=== PATIENT | female | born 1965 | race Caucasian/White ===

== ENCOUNTER 2022-06-12 19:08 | Emergency (ER) | payer BC, SELFPAY ==
--- NOTE | ~2022-06-12 | CT_ITS ---
EXAMINATION: CT ABDOMEN AND PELVIS WITH CONTRAST CLINICAL INFORMATION: Abdominal pain, nausea, vomiting and diarrhea. History of ulcerative colitis. COMPARISON: None TECHNIQUE: Multidetector volumetric images were obtained from the superior aspect of the liver through the pubic symphysis following administration 85 mL of Omnipaque 350 intravenous contrast. Sagittal and coronal reformatted images were obtained on the technologist's workstation. Oral contrast: No This CT examination was performed using dose optimization techniques as appropriate, variously including the following: *Automated exposure control *Adjustment of mA and/or kV according to patient size (this includes techniques or standardized protocols for targeted exams where dose is matched to indication/reason for exam; i.e. extremities or head) *Use of iterative reconstruction technique DLP: 590 mGy-cm FINDINGS: LUNG BASES: The visualized lung bases are unremarkable. LIVER, GALLBLADDER, AND BILIARY TREE: The liver is normal in size, shape, and attenuation. No focal hepatic lesion or biliary ductal dilatation is present. The gallbladder is unremarkable with no evidence of radiopaque gallstones, gallbladder wall thickening, or obvious pericholecystic inflammatory changes. Trace perihepatic ascites. PANCREAS: Unremarkable. SPLEEN: Unremarkable. ADRENAL GLANDS: Unremarkable. KIDNEYS AND URETERS: The kidneys are normal in size, shape, and attenuation. There is scarring in the lower pole left kidney. An associated dystrophic parenchymal calcification present in the lower pole of left kidney. No hydronephrosis, hydroureter, or calculi seen. No perinephric stranding. BLADDER: Unremarkable. GASTROINTESTINAL TRACT: Total colectomy with ileoanal anastomosis with J-pouch. There is mild edematous wall thickening of the J-pouch and distal ileum leading up to 8 suggestive of esophagitis and possibly enteritis. In addition, there is mesenteric fat stranding and edema in the right upper quadrant and central abdomen. There is no discrete point of transition to suggest obstruction. ABDOMINAL WALL: No significant hernia is appreciated. LYMPH NODES: Normal. VASCULAR: Unremarkable. PELVIC VISCERA: Unremarkable. OSSEOUS STRUCTURES: Unremarkable. CT/CT abdomen pelvis w IV con IMPRESSION: * Status post total colectomy with J-pouch formation. There is mild edematous wall thickening of the J-pouch and distal ileum leading up to the J-pouch suggestive of enteritis. * There is mesenteric edema and fat stranding in the right upper quadrant and central abdomen associated with more proximal loops of small bowel,
--- NOTE | ~2022-06-12 | US_ITS ---
EXAMINATION: US ABDOMEN LIMITED CLINICAL INFORMATION: Nausea and epigastric pain. COMPARISON: None TECHNIQUE: Real-time imaging of the right upper quadrant abdominal viscera. FINDINGS: PANCREAS: The head and the body the pancreas is homogeneous in echotexture. The tail is obscured by overlying gas. LIVER: Normal. The liver is normal in size. The liver contour is normal. Parenchymal echogenicity is normal. No focal hepatic lesion. There is no intrahepatic biliary duct dilatation seen. GALLBLADDER: Normal. The gallbladder is physiologically distended without evidence of stones, sludge, polyps, wall thickening or pericholecystic fluid. COMMON BILE DUCT: Normal in caliber measuring 0.3 cm in diameter. RIGHT KIDNEY: Normal. No hydronephrosis. No renal calculi or focal parenchymal lesions. The kidney measures 9.3 cm in maximum dimension. FREE FLUID: None. US/US abdomen limited IMPRESSION: Limited abdominal ultrasound appears unremarkable.
[2022-06-12 19:48] VITALS: BP 165/75; PULSE 92; RESP 16; TEMP 36.7; O2SAT 99; BMI 26.6
--- NOTE | 2022-06-12 19:50 | ED.ABDPAIN ---
HPI - Abdominal Pain General Chief Complaint: Abdominal Pain Stated Complaint: right sided abd pain,nausea Time Seen by Provider: 06/12/22 23:23 Related Data Previous Rx's Medication Instructions Recorded ondansetron 4 mg disintegrating 4 mg PO TID PRN nausea and 06/13/22 tablet vomiting 5 days #10 tabs Allergies Allergy/AdvReac Type Severity Reaction Status Date / Time acetaminophen [From VICODIN] Allergy Unknown STOMACH Unverified 12/18/19 15:37 UPSET hydrocodone [From VICODIN] Allergy Unknown STOMACH Unverified 12/18/19 15:37 UPSET vicodin Allergy Unknown vomited in Uncoded 10/16/17 00:00 the ER years ago [facility] Social History Social History Alcohol intake: never Smoked in Last 30 Days: No Use of substances other than those prescribed or required for medical reasons: No Advance Directives: No Patient : No Physical Exam ED Vital Signs: BMI result Body Mass Index 26.6 Course Course Course Narrative: RME-19:50PM - 57yo presenting to the ER with complaints of right-sided/epigastric abdominal pain for the past 2 weeks worse today with associated nausea. Reports increased anxiety/depression. Vague about SI/HI. Denies any fevers or vomiting or diarrhea, recent travel or sick contacts or any other symptoms complaints or concerns at this time. Plan: Labs, UA, COVID swab, abdominal ultrasound. Patient will be sent back to the waiting room to be evaluated the ED. Medical Decision Making Lab Data 06/12/22 22:30 06/12/22 22:30 Labs: Lab Results 06/12/22 06/12/22 06/12/22 Range/Units 22:30 22:30 22:30 WBC 12.6 H (4.8-10.8) X10*3/uL RBC 4.36 (4.20-5.50) X10*6/uL Hgb 8.8 L (12.0-16.0) g/dl Hct 29.0 L (37.0-47.0) % MCV 66.5 L (80.0-98.0) fL MCH 20.2 L (27.0-33.0) pg MCHC 30.3 L (31.0-35.0) g/dl RDW 18.7 H (11.0-16.0) % Plt Count 426 H (160-400) X10*3/uL MPV 9.9 (9.4-12.3) fL Immature Gran % (Auto) 0.5 H (0.0-0.4) % Neut % (Auto) 81.7 H (45-73) % Lymph % (Auto) 12.1 L (20-40) % [place] % (Auto) 3.9 (2-11) % Eos % (Auto) 1.0 (0-4) % Baso % (Auto) 0.8 (0-2) % Lymph # (Auto) 1.5 (1.2-4.9) X10*3/uL [place] # (Auto) 0.5 (0.1-1.2) X10*3/uL Eos # (Auto) 0.1 (0.0-0.4) X10*3/uL Baso # (Auto) 0.1 (0.0-0.2) X10*3/uL Abs Immat Gran (auto) 0.06 H (0.00-0.03) X10*3/uL Absolute Neuts (auto) 10.3 H (2.0-8.3) x10*3/uL Absolute Nucleated RBC 0.000 (0.0-0.012) X10*3/uL Nucleated RBC % (auto) 0.0 (0.0-0.2) /100WBC PT 11.2 (10.0-13.1) SEC INR 1.0 (0.9-1.1) Sodium 139 (135-145) mmol/L Potassium 3.7 (3.3-5.1) mmol/L Chloride 100 (96-108) mmol/L Carbon Dioxide 30 H (22-29) mmol/L Anion Gap 13 (12-20) BUN 13 (9-16) mg/dL Creatinine 0.89 (0.5-1.4) mg/dL Estim Creat Clear Calc 69.5 Estimated GFR > 60 Random Glucose 146 H (60-115) mg/dL Calcium 9.2 (8.4-10.2) mg/dL Magnesium 1.9 (1.6-2.6) mg/dL Total Bilirubin 0.5 (0.0-1.0) mg/dL AST 60 H (5-31) U/L ALT 73 H (0-31) U/L Alkaline Phosphatase 100 (39-117) U/L Total Protein 7.5 (6.5-8.0) g/dL Albumin 3.9 (3.5-5.0) g/dL Lipase 15 (8-78) U/L Urine Color Urine Appearance Urine pH Ur Specific [place] Urine Protein Urine Glucose (UA) Urine Ketones Urine Blood Urine Nitrite Ur Leukocyte Esterase Urine Opiates Screen (Not Detect) Urine Fentanyl Screen (Not Detect) Ur Barbiturates Screen (Not Detect) Ur Phencyclidine Scrn (Not Detect) Ur Amphetamines Screen (Not Detect) U Benzodiazepines Scrn (Not Detect) Urine Cocaine Screen (Not Detect) U Marijuana (THC) Screen (Not Detect) Ethyl Alcohol mg/dL Influenza Type A (PCR) (Negative) Influenza Type B (PCR) (Negative) RSV RNA Qual (PCR) (Negative) SARS-CoV-2 RNA (RT-PCR) (Negative) 06/12/22 06/12/22 06/13/22 Range/Units 22:30 22:30 00:27 WBC (4.8-10.8) X10*3/uL RBC (4.20-5.50) X10*6/uL Hgb (12.0-16.0) g/dl Hct (37.0-47.0) % MCV (80.0-98.0) fL MCH (27.0-33.0) pg MCHC (31.0-35.0) g/dl RDW (11.0-16.0) % Plt Count (160-400) X10*3/uL MPV (9.4-12.3) fL Immature Gran % (Auto) (0.0-0.4) % Neut % (Auto) (45-73) % Lymph % (Auto) (20-40) % [place] % (Auto) (2-11) % Eos % (Auto) (0-4) % Baso % (Auto) (0-2) % Lymph # (Auto) (1.2-4.9) X10*3/uL [place] # (Auto) (0.1-1.2) X10*3/uL Eos # (Auto) (0.0-0.4) X10*3/uL Baso # (Auto) (0.0-0.2) X10*3/uL Abs Immat Gran (auto) (0.00-0.03) X10*3/uL Absolute Neuts (auto) (2.0-8.3) x10*3/uL Absolute Nucleated RBC (0.0-0.012) X10*3/uL Nucleated RBC % (auto) (0.0-0.2) /100WBC PT (10.0-13.1) SEC INR (0.9-1.1) Sodium (135-145) mmol/L Potassium (3.3-5.1) mmol/L Chloride (96-108) mmol/L Carbon Dioxide (22-29) mmol/L Anion Gap (12-20) BUN (9-16) mg/dL Creatinine (0.5-1.4) mg/dL Estim Creat Clear Calc Estimated GFR Random Glucose (60-115) mg/dL Calcium (8.4-10.2) mg/dL Magnesium (1.6-2.6) mg/dL Total Bilirubin (0.0-1.0) mg/dL AST (5-31) U/L ALT (0-31) U/L Alkaline Phosphatase (39-117) U/L Total Protein (6.5-8.0) g/dL Albumin (3.5-5.0) g/dL Lipase (8-78) U/L Urine Color Cancelled Urine Appearance Cancelled Urine pH Cancelled Ur Specific [place] Cancelled Urine Protein Cancelled Urine Glucose (UA) Cancelled Urine Ketones Cancelled Urine Blood Cancelled Urine Nitrite Cancelled Ur Leukocyte Esterase Cancelled Urine Opiates Screen (Not Detect) Urine Fentanyl Screen (Not Detect) Ur Barbiturates Screen (Not Detect) Ur Phencyclidine Scrn (Not Detect) Ur Amphetamines Screen (Not Detect) U Benzodiazepines Scrn (Not Detect) Urine Cocaine Screen (Not Detect) U Marijuana (THC) Screen (Not Detect) Ethyl Alcohol < 10 mg/dL Influenza Type A (PCR) NEGATIVE (Negative) Influenza Type B (PCR) NEGATIVE (Negative) RSV RNA Qual (PCR) NEGATIVE (Negative) SARS-CoV-2 RNA (RT-PCR) POSITIVE A (Negative) 03/14/23 Range/Units 00:27 WBC (4.8-10.8) X10*3/uL RBC (4.20-5.50) X10*6/uL Hgb (12.0-16.0) g/dl Hct (37.0-47.0) % MCV (80.0-98.0) fL MCH (27.0-33.0) pg MCHC (31.0-35.0) g/dl RDW (11.0-16.0) % Plt Count (160-400) X10*3/uL MPV (9.4-12.3) fL Immature Gran % (Auto) (0.0-0.4) % Neut % (Auto) (45-73) % Lymph % (Auto) (20-40) % [place] % (Auto) (2-11) % Eos % (Auto) (0-4) % Baso % (Auto) (0-2) % Lymph # (Auto) (1.2-4.9) X10*3/uL [place] # (Auto) (0.1-1.2) X10*3/uL Eos # (Auto) (0.0-0.4) X10*3/uL Baso # (Auto) (0.0-0.2) X10*3/uL Abs Immat Gran (auto) (0.00-0.03) X10*3/uL Absolute Neuts (auto) (2.0-8.3) x10*3/uL Absolute Nucleated RBC (0.0-0.012) X10*3/uL Nucleated RBC % (auto) (0.0-0.2) /100WBC PT (10.0-13.1) SEC INR (0.9-1.1) Sodium (135-145) mmol/L Potassium (3.3-5.1) mmol/L Chloride (96-108) mmol/L Carbon Dioxide (22-29) mmol/L Anion Gap (12-20) BUN (9-16) mg/dL Creatinine (0.5-1.4) mg/dL Estim Creat Clear Calc Estimated GFR Random Glucose (60-115) mg/dL Calcium (8.4-10.2) mg/dL Magnesium (1.6-2.6) mg/dL Total Bilirubin (0.0-1.0) mg/dL AST (5-31) U/L ALT (0-31) U/L Alkaline Phosphatase (39-117) U/L Total Protein (6.5-8.0) g/dL Albumin (3.5-5.0) g/dL Lipase (8-78) U/L Urine Color Urine Appearance Urine pH Ur Specific [place] Urine Protein Urine Glucose (UA) Urine Ketones Urine Blood Urine Nitrite Ur Leukocyte Esterase Urine Opiates Screen Not Detected (Not Detect) Urine Fentanyl Screen Not Detected (Not Detect) Ur Barbiturates Screen Not Detected (Not Detect) Ur Phencyclidine Scrn Not Detected (Not Detect) Ur Amphetamines Screen Not Detected (Not Detect) U Benzodiazepines Scrn Not Detected (Not Detect) Urine Cocaine Screen Not Detected (Not Detect) U Marijuana (THC) Screen Not Detected (Not Detect) Ethyl Alcohol mg/dL Influenza Type A (PCR) (Negative) Influenza Type B (PCR) (Negative) RSV RNA Qual (PCR) (Negative) SARS-CoV-2 RNA (RT-PCR) (Negative) Medications Administered Discontinued Medications Generic Name Dose Route Start Last Admin Trade Name Freq PRN Reason Stop Dose Admin Sodium Chloride 1,000 mls @ 999 mls/hr 06/13/22 00:30 06/13/22 01:51 Ns IV 06/13/22 01:30 Infused .Q1H1M JUDY Infusion Iohexol 85 ml 06/13/22 01:19 06/13/22 01:20 Iohexol 350 Mg/Ml 100 Ml Infus..Btl IV 06/13/22 01:20 85 ml ONCE ONE Administration Ondansetron HCl 4 mg 06/13/22 00:16 06/13/22 00:30 Ondansetron Hcl 4 Mg/2 Ml Vial IVPUSH 06/13/22 00:17 4 mg ONCE ONE Administration Discharge Plan Discharge Clinical Impression: Colitis Patient Disposition: Home, Self-Care Instructions: Colitis (ED) Prescriptions: New ondansetron 4 mg tablet,disintegrating 4 mg PO TID PRN (Reason: nausea and vomiting) 5 Days Qty: 10 0RF Referrals: Sara Conroy MD [Primary Care Provider] - Gumaro Kruse [Physician] - Interventions: ED Discharge Assessment Last Done: 06/13/22 02:45 Discharge Date/Time: 06/13/22 03:01
[2022-06-12 22:38] LABS: MANUAL DIFF FLAG NO
[2022-06-12 22:39] LABS: Basophils Absolute Auto 0.1 X10*3/uL (0.0-0.2); Basophils Percent Auto 0.8 % (0-2); Eosinophils Absolute Auto 0.1 X10*3/uL (0.0-0.4); Hemoglobin 8.8 g/dl (12.0-16.0); Imm Gran Abs Auto 0.06 X10*3/uL (0.00-0.03); Imm Gran Pct Auto 0.5 % (0.0-0.4); Lymphocytes Absolute Auto 1.5 X10*3/uL (1.2-4.9); Lymphocytes Percent Auto 12.1 % (20-40); Mean Corpuscular HGB Conc 30.3 g/dl (31.0-35.0); Mean Corpuscular Hemoglobin 20.2 pg (27.0-33.0); Mean Corpuscular Volume 66.5 fL (80.0-98.0); Mean Platelet Volume 9.9 fL (9.4-12.3); Monocytes Absolute Auto 0.5 X10*3/uL (0.1-1.2); Monocytes Percent Auto 3.9 % (2-11); Neutrophils Absolute Auto 10.3 x10*3/uL (2.0-8.3); Neutrophils Percent Auto 81.7 % (45-73); Platelet Count 426 X10*3/uL (160-400); Red Blood Count 4.36 X10*6/uL (4.20-5.50); Red Cell Distribution Width 18.7 % (11.0-16.0); White Blood Count 12.6 X10*3/uL (4.8-10.8)
[2022-06-12 22:44] LABS: Prothrombin Time 11.2 SEC (10.0-13.1)
[2022-06-12 22:55] LABS: Ethanol < 10 mg/dL
[2022-06-12 22:57] LABS: Alanine Aminotransferase 73 U/L (0-31); Albumin Level 3.9 g/dL (3.5-5.0); Alkaline Phosphatase 100 U/L (39-117); Anion Gap 13 (12-20); Aspartate Amino Transferase 60 U/L (5-31); Bilirubin Total 0.5 mg/dL (0.0-1.0); Blood Urea Nitrogen 13 mg/dL (9-16); Calcium 9.2 mg/dL (8.4-10.2); Carbon Dioxide 30 mmol/L (22-29); Chloride 100 mmol/L (96-108); Creatinine Clr Calc Pharmacy 69.5; Estimated Glomerular Filt Rate > 60; Glucose Random 146 mg/dL (60-115); Lipase 15 U/L (8-78); Magnesium 1.9 mg/dL (1.6-2.6); Potassium 3.7 mmol/L (3.3-5.1); Sodium 139 mmol/L (135-145); Total Protein 7.5 g/dL (6.5-8.0)
[2022-06-12 23:19] LABS: Influenza A PCR NEGATIVE (Negative); Influenza B PCR NEGATIVE (Negative); Resp Syncy Virus RNA Qual PCR NEGATIVE (Negative); SARS COV2 PCR INHOUSE POSITIVE (Negative)
--- NOTE | 2022-06-13 00:17 | ED_ITS ---
HPI - Abdominal Pain General Chief Complaint: Abdominal Pain Stated Complaint: right sided abd pain,nausea Time Seen by Provider: 06/12/22 23:23 History of Present Illness HPI narrative: Patient is a 57-year-old female with a history of ulcerative colitis history of having colectomy history of having a J-pouch and subsequently had reattached history of abscesses and seizures in the past. Presents today with having abdominal pain nausea vomiting patient always has diarrhea that is not seen. Vomiting is new. It is associated with pain in the right lower quadrant. She is status post appendectomy. Patient had COVID approximately 1 month ago. He is vaccinated Related Data Previous Rx's Medication Instructions Recorded ondansetron 4 mg disintegrating 4 mg PO TID PRN nausea and 06/13/22 tablet vomiting 5 days #10 tabs Allergies Allergy/AdvReac Type Severity Reaction Status Date / Time acetaminophen [From VICODIN] Allergy Unknown STOMACH Unverified 12/18/19 15:37 UPSET hydrocodone [From VICODIN] Allergy Unknown STOMACH Unverified 12/18/19 15:37 UPSET vicodin Allergy Unknown vomited in Uncoded 10/16/17 00:00 the ER years ago Review of Systems Review of Systems Positive abdominal pain positive nausea vomiting Yes all other systems are reviewed and are negative PMFSH Social History Social History Alcohol intake: never Smoked in Last 30 Days: No Use of substances other than those prescribed or required for medical reasons: No Advance Directives: No Patient : No Physical Exam ED Vital Signs: Vital Signs - 24 hr 06/12/22 19:48 06/13/22 00:33 06/13/22 02:11 Temperature 98.0 F 98.3 F Pulse Rate 92 75 80 Respiratory Rate 16 16 18 Blood Pressure 165/75 H 136/82 141/82 H Pulse Oximetry 99 96 98 Oxygen Delivery Method Room Air Room Air Room Air BMI result Body Mass Index 26.6 Appearance: Alert. Oriented X3. No acute distress. Eyes: Pupils equal, round and reactive to light. ENT: Pharynx normal. Neck: Normal inspection. Neck supple. No lymph nodes noted. No crepitus CVS: Normal heart rate and rhythm. Pulses normal. Normal S1 and S2 Respiratory: No respiratory distress. Breath sounds normal. No Wheezing. No rales Abdomen: Soft and nontender. No rigidity. No distention. good BS x4 Skin: Skin warm and dry. Normal skin color. Normal skin turgor. Extremities: No lower extremity edema. Neurovascular intact to all extremities. No Lacerations. No Rash Neuro: Oriented X 3. No motor deficit. No sensory deficit. Moving all extermities. No slurred speech Medical Decision Making Medical Decision Making [facility] Narrative: Patient positive abdominal pain cramping with a history of colectomy status post J pouch in the past. CT scan of the abdomen pelvis was done. There is no obstruction noted. No abscess no perforation no diverticulitis. Patient's appendix is removed. Patient CT did show some mild colitis. Her symptom has improved. Repeat abdominal exam is soft nontender. Patient will follow-up on an outpatient basis with her primary GI doctor Dr. Kruse. In stable condition. Differential Diagnosis Colitis, obstruction, abscess, perforation Lab Data [facility] Lab Attestation statement: I reviewed the patient's lab results. 06/12/22 22:30 06/12/22 22:30 Labs: Lab Results 06/12/22 06/12/22 06/12/22 Range/Units 22:30 22:30 22:30 WBC 12.6 H (4.8-10.8) X10*3/uL RBC 4.36 (4.20-5.50) X10*6/uL Hgb 8.8 L (12.0-16.0) g/dl Hct 29.0 L (37.0-47.0) % MCV 66.5 L (80.0-98.0) fL MCH 20.2 L (27.0-33.0) pg MCHC 30.3 L (31.0-35.0) g/dl RDW 18.7 H (11.0-16.0) % Plt Count 426 H (160-400) X10*3/uL MPV 9.9 (9.4-12.3) fL Immature Gran % (Auto) 0.5 H (0.0-0.4) % Neut % (Auto) 81.7 H (45-73) % Lymph % (Auto) 12.1 L (20-40) % [place] % (Auto) 3.9 (2-11) % Eos % (Auto) 1.0 (0-4) % Baso % (Auto) 0.8 (0-2) % Lymph # (Auto) 1.5 (1.2-4.9) X10*3/uL [place] # (Auto) 0.5 (0.1-1.2) X10*3/uL Eos # (Auto) 0.1 (0.0-0.4) X10*3/uL Baso # (Auto) 0.1 (0.0-0.2) X10*3/uL Abs Immat Gran (auto) 0.06 H (0.00-0.03) X10*3/uL Absolute Neuts (auto) 10.3 H (2.0-8.3) x10*3/uL Absolute Nucleated RBC 0.000 (0.0-0.012) X10*3/uL Nucleated RBC % (auto) 0.0 (0.0-0.2) /100WBC PT 11.2 (10.0-13.1) SEC INR 1.0 (0.9-1.1) Sodium 139 (135-145) mmol/L Potassium 3.7 (3.3-5.1) mmol/L Chloride 100 (96-108) mmol/L Carbon Dioxide 30 H (22-29) mmol/L Anion Gap 13 (12-20) BUN 13 (9-16) mg/dL Creatinine 0.89 (0.5-1.4) mg/dL Estim Creat Clear Calc 69.5 Estimated GFR > 60 Random Glucose 146 H (60-115) mg/dL Calcium 9.2 (8.4-10.2) mg/dL Magnesium 1.9 (1.6-2.6) mg/dL Total Bilirubin 0.5 (0.0-1.0) mg/dL AST 60 H (5-31) U/L ALT 73 H (0-31) U/L Alkaline Phosphatase 100 (39-117) U/L Total Protein 7.5 (6.5-8.0) g/dL Albumin 3.9 (3.5-5.0) g/dL Lipase 15 (8-78) U/L Urine Opiates Screen (Not Detect) Urine Fentanyl Screen (Not Detect) Ur Barbiturates Screen (Not Detect) Ur Phencyclidine Scrn (Not Detect) Ur Amphetamines Screen (Not Detect) U Benzodiazepines Scrn (Not Detect) Urine Cocaine Screen (Not Detect) U Marijuana (THC) Screen (Not Detect) Ethyl Alcohol mg/dL Influenza Type A (PCR) (Negative) Influenza Type B (PCR) (Negative) RSV RNA Qual (PCR) (Negative) SARS-CoV-2 RNA (RT-PCR) (Negative) 06/12/22 06/12/22 06/13/22 Range/Units 22:30 22:30 00:27 WBC (4.8-10.8) X10*3/uL RBC (4.20-5.50) X10*6/uL Hgb (12.0-16.0) g/dl Hct (37.0-47.0) % MCV (80.0-98.0) fL MCH (27.0-33.0) pg MCHC (31.0-35.0) g/dl RDW (11.0-16.0) % Plt Count (160-400) X10*3/uL MPV (9.4-12.3) fL Immature Gran % (Auto) (0.0-0.4) % Neut % (Auto) (45-73) % Lymph % (Auto) (20-40) % [place] % (Auto) (2-11) % Eos % (Auto) (0-4) % Baso % (Auto) (0-2) % Lymph # (Auto) (1.2-4.9) X10*3/uL [place] # (Auto) (0.1-1.2) X10*3/uL Eos # (Auto) (0.0-0.4) X10*3/uL Baso # (Auto) (0.0-0.2) X10*3/uL Abs Immat Gran (auto) (0.00-0.03) X10*3/uL Absolute Neuts (auto) (2.0-8.3) x10*3/uL Absolute Nucleated RBC (0.0-0.012) X10*3/uL Nucleated RBC % (auto) (0.0-0.2) /100WBC PT (10.0-13.1) SEC INR (0.9-1.1) Sodium (135-145) mmol/L Potassium (3.3-5.1) mmol/L Chloride (96-108) mmol/L Carbon Dioxide (22-29) mmol/L Anion Gap (12-20) BUN (9-16) mg/dL Creatinine (0.5-1.4) mg/dL Estim Creat Clear Calc Estimated GFR Random Glucose (60-115) mg/dL Calcium (8.4-10.2) mg/dL Magnesium (1.6-2.6) mg/dL Total Bilirubin (0.0-1.0) mg/dL AST (5-31) U/L ALT (0-31) U/L Alkaline Phosphatase (39-117) U/L Total Protein (6.5-8.0) g/dL Albumin (3.5-5.0) g/dL Lipase (8-78) U/L Urine Opiates Screen Not Detected (Not Detect) Urine Fentanyl Screen Not Detected (Not Detect) Ur Barbiturates Screen Not Detected (Not Detect) Ur Phencyclidine Scrn Not Detected (Not Detect) Ur Amphetamines Screen Not Detected (Not Detect) U Benzodiazepines Scrn Not Detected (Not Detect) Urine Cocaine Screen Not Detected (Not Detect) U Marijuana (THC) Screen Not Detected (Not Detect) Ethyl Alcohol < 10 mg/dL Influenza Type A (PCR) NEGATIVE (Negative) Influenza Type B (PCR) NEGATIVE (Negative) RSV RNA Qual (PCR) NEGATIVE (Negative) SARS-CoV-2 RNA (RT-PCR) POSITIVE A (Negative) Independent Interpretation Interpretation: No Radiology Impression Discussion of test interpretation with radiology: I have reviewed the radiologist's reading. External Record Review External record reviewed: Inpatient record Medications Administered Discontinued Medications Generic Name Dose Route Start Last Admin Trade Name Freq PRN Reason Stop Dose Admin Sodium Chloride 1,000 mls @ 999 mls/hr 06/13/22 00:30 06/13/22 01:51 Ns IV 06/13/22 01:30 Infused .Q1H1M JUDY Infusion Iohexol 85 ml 06/13/22 01:19 06/13/22 01:20 Iohexol 350 Mg/Ml 100 Ml Infus..Btl IV 06/13/22 01:20 85 ml ONCE ONE Administration Ondansetron HCl 4 mg 06/13/22 00:16 06/13/22 00:30 Ondansetron Hcl 4 Mg/2 Ml Vial IVPUSH 06/13/22 00:17 4 mg ONCE ONE Administration Discharge Plan Discharge Clinical Impression: Colitis Patient Disposition: Home, Self-Care Instructions: Colitis (ED) Prescriptions: New ondansetron 4 mg tablet,disintegrating 4 mg PO TID PRN (Reason: nausea and vomiting) 5 Days Qty: 10 0RF Referrals: Sara Conroy MD [Primary Care Provider] - Gumaro Kruse [Physician] -
[2022-06-13] MEDS: ondansetron HCL 4 MG/2 ML VIAL IVPUSH (00:30)
[2022-06-13 00:33] VITALS: BP 136/82; PULSE 75; RESP 16; TEMP 36.8; O2SAT 96
[2022-06-13] MEDS: 0.9 % Sodium Chloride 1,000 ML 999 ML IV (00:33)
[2022-06-13 00:54] LABS: Amphetamine Screen Urine Not Detected (Not Detect); Barbiturates, Urine Not Detected (Not Detect); Benzodiazepines Screen Urine Not Detected (Not Detect); Cannabinoid Screen Urine Not Detected (Not Detect); Cocaine Screen Urine Not Detected (Not Detect); Fentanyl, urine Not Detected (Not Detect); Opiate Screen Urine Not Detected (Not Detect); Phencyclidine Screen Urine Not Detected (Not Detect)
--- NOTE | 2022-06-13 01:13 | PC.NURSE ---
Pt A&Ox4, reports 5/10 RLQ ABD pain, increasing from intermittent to now constant today with N/V. Pt reports pain relief after vomiting while waiting to be seen. Last BM was today, states I have colitis so I always have diarrhea . Pt states she had covid + 05/08/2022.
[2022-06-13] MEDS: iohexoL 350 MG/ML 100 ML INFUS..BTL 85 ML IV (01:20)
[2022-06-13 02:11] VITALS: BP 141/82; PULSE 80; RESP 18; O2SAT 98
== END 2022-06-13 03:01 | disposition home or self-care (01) ==
PROVIDERS: Physician Assistant Medical; Emergency Provider Emergency Medicine Emergency Medical Services; PCP Internal Medicine
DX: K52.9 Noninfective gastroenteritis and colitis, unspecified (principal); Z20.822 Contact with and (suspected) exposure to COVID-19; Z20.828 Contact with and (suspected) exposure to other viral communicable diseases; Z79.899 Other long term (current) drug therapy
CPT/HCPCS: 0241U; 36415; 74177; 76705; 80053; 80307; 82077; 83690; 83735; 85025; 85610; 96361; 96374; 99284; 99285; J2405; Q9967

== ENCOUNTER 2022-09-19 13:50 | Outpatient (REF) | payer OTHER, MEDICAID, SELFPAY ==
[2022-09-19 14:35] LABS: Prothrombin Time 11.2 SEC (10.0-13.1)
[2022-09-19 15:32] LABS: Alanine Aminotransferase 72 U/L (0-31); Albumin Level 3.8 g/dL (3.5-5.0); Alkaline Phosphatase 112 U/L (39-117); Aspartate Amino Transferase 71 U/L (5-31); Bilirubin Direct 0.1 mg/dL (0.0-0.5); Bilirubin Total 0.4 mg/dL (0.0-1.0)
[2022-09-20 04:37] LABS: HBS Num1 0.15 mIU/mL (0-7.99); HBc Num1 0.17 S/CO (0.00-0.79); HBsAGNum1 0.42 S/CO (0.00-0.99); Hepatitis B Core Antibody Nonreactive (Nonreactive); Hepatitis B Surface Antigen Negative (Negative); ~HepC Num1 0.19 S/CO (0.00-0.79); ~Hepatitis B Surface Antibody NONREACTIVE (Nonreactive); ~Hepatitis C Antibody Nonreactive (Nonreactive)
[2022-09-21 14:08] LABS: Gliadin Deamidated IgA Ab <1.0 U/mL; Gliadin Deamidated IgG Ab <1.0 U/mL; Transglutaminase Ab IgG 1.6 U/mL; Transglutaminase IgA <1.0 U/mL
[2022-09-21 16:03] LABS: Immunoglobulin A 372 mg/dL (47-310)
[2022-09-21 17:53] LABS: Alpha 1 Anti-trypsin 151 mg/dL (83-199)
[2022-09-21 22:13] LABS: Anti Nuclear Antibody Pattern Nuclear, Homogeneous; Anti Nuclear Antibody Screen POSITIVE (NEGATIVE)
[2022-09-24 14:33] LABS: Endomysial IgA Antibody Negative (Negative)
[2022-09-25 11:43] LABS: Mitochondrial Antibodies NEGATIVE (NEGATIVE)
[2022-09-25 14:18] LABS: Smooth Muscle Antibody 36 U (<20)
== END 2022-09-19 13:51 | disposition home or self-care (01) ==
LOC: HO.LAB 13:50
PROVIDERS: Visit Provider Internal Medicine
DX: R79.89 Other specified abnormal findings of blood chemistry (principal); D50.9 Iron deficiency anemia, unspecified
CPT/HCPCS: 36415; 80076; 82103; 82784; 85610; 86015; 86038; 86039; 86231; 86255; 86256; 86258; 86364; 86704; 86706; 86803; 87340

== ENCOUNTER 2022-10-23 09:55 | Day surgery (SDC) | payer OTHER, SELFPAY ==
--- NOTE | 2022-10-20 14:28 | HO.ANESPROP2 ---
Documented by User: Pilar Rutledge NP 10/20/22 14:30 HPI - Anesthesia Eval Consult details Narrative: 57yo F for Upper Endoscopy, Sigmoidoscopy Flexible PMFSH Past Medical History Medical History Anal fistula Anemia Bunion Malaika's thyroiditis Hx of pneumothorax Iritis Pouchitis Rheumatoid arthritis Ulcerative colitis Surgical History Surgical History History of back surgery History of breast surgery History of exploratory laparotomy Social History Social History Alcohol intake: never Patient Tobacco Use Status: Never used Tobacco Use of substances other than those prescribed or required for medical reasons: No Are you DNR?: No Advance Directives: No Advance Directives Information Provided: Yes Meds Allergies Allergy/AdvReac Type Severity Reaction Status Date / Time acetaminophen [From VICODIN] Allergy Unknown STOMACH Verified 10/23/22 10:41 UPSET hydrocodone [From VICODIN] Allergy Unknown STOMACH Verified 10/23/22 10:41 UPSET vicodin Allergy Unknown vomited in Uncoded 10/16/17 00:00 the ER years ago Home Medications Medication Instructions Recorded Confirmed Last Taken Type adalimumab 40 mg/0.4 mL 40 mg subcut Q2W 10/20/22 10/20/22 Unknown History subcutaneous pen kit (Humira(CF) Pen) citalopram 20 mg tablet 20 mg PO DAILY 10/20/22 10/20/22 Unknown History levothyroxine 75 mcg tablet 75 mcg PO DAILY 10/20/22 10/20/22 10/23/22 06:30 History omeprazole 20 mg capsule,delayed 20 mg PO DAILY 10/20/22 10/20/22 Unknown History release ondansetron 4 mg disintegrating 4 mg PO TID PRN nausea/vomiting 10/20/22 10/20/22 Unknown History tablet Exam Exam Date and Time: October 20, 2022 1428 Pertinent Lab Results Pertinent Lab Results: Laboratory Tests 06/12/22 06/12/22 22:30 22:30 WBC 12.6 H Hgb 8.8 L Hct 29.0 L Plt Count 426 H Sodium 139 Potassium 3.7 Chloride 100 Carbon Dioxide 30 H BUN 13 Creatinine 0.89 Assessment and Plan Assessment Anesthesia Assessment: Chart Reviewed Documented by User: Deloris Oliver MD 10/23/22 11:35 PMFSH Past Medical History Medical History Anal fistula Anemia Bunion Malaika's thyroiditis Hx of pneumothorax Iritis Pouchitis Rheumatoid arthritis Ulcerative colitis Family History Family history of problems with anesthesia: No Surgical History Surgical History History of back surgery History of breast surgery History of exploratory laparotomy History of Problems with Anesthesia: No Social History Social History Alcohol intake: never Patient Tobacco Use Status: Never used Tobacco Use of substances other than those prescribed or required for medical reasons: No Are you DNR?: No Advance Directives: No Advance Directives Information Provided: Yes Meds Allergies Allergy/AdvReac Type Severity Reaction Status Date / Time acetaminophen [From VICODIN] Allergy Unknown STOMACH Verified 10/23/22 10:41 UPSET hydrocodone [From VICODIN] Allergy Unknown STOMACH Verified 10/23/22 10:41 UPSET vicodin Allergy Unknown vomited in Uncoded 10/16/17 00:00 the ER years ago Home Medications Medication Instructions Recorded Confirmed Last Taken Type adalimumab 40 mg/0.4 mL 40 mg subcut Q2W 10/20/22 10/20/22 Unknown History subcutaneous pen kit (Humira(CF) Pen) citalopram 20 mg tablet 20 mg PO DAILY 10/20/22 10/20/22 Unknown History levothyroxine 75 mcg tablet 75 mcg PO DAILY 10/20/22 10/20/22 10/23/22 06:30 History omeprazole 20 mg capsule,delayed 20 mg PO DAILY 10/20/22 10/20/22 Unknown History release ondansetron 4 mg disintegrating 4 mg PO TID PRN nausea/vomiting 10/20/22 10/20/22 Unknown History tablet Exam Airway Mallampati Class: II TM Dist: >3cm Neck ROM: Full Heart: rrr Lungs: cta Assessment and Plan Assessment Anesthesia Assessment: Anesthesia Plan Discussed Final Anesthetic Review Family History of Problems with Anesthesia: No History of Problems with Anesthesia: No NPO: Yes ASA Class: II and III Final Preanesthetic Review: No Changes in Pt Med Stat, Meds/Allgs Chart Reviewed, Consent Obtained/Reviewed and Anes Risks/Benef Reviewed Patient Risk: Low Procedure Risk: Low Anesthetic Plan Anesthetic Plan: MAC: Disposition: Standard PACU
[2022-10-23 10:43] VITALS: BMI 26.6
[2022-10-23 10:48] VITALS: BP 140/88; PULSE 76; RESP 15; TEMP 36.4; O2SAT 98
[2022-10-23] MEDS: Lactated Ringers 1,000 ML 100 ML IVCONT (11:08)
[2022-10-23 11:55] VITALS: BP 102/61; PULSE 74; RESP 16; TEMP 36.1; O2SAT 97
--- NOTE | 2022-10-23 11:55 | PM.OP ---
Brief Operative Note Date of Service: 10/23/22 Pre-op diagnosis: GERD, Anemia, Hx of pouchitis Post-op diagnosis: other (Duodenitis/Gastritis, Ileitis/Pouchitis) Procedure: EGD with biopsies and Pouchoscopy with biopsies Surgeon: Gumaro Kruse Anesthesia: MAC Was an Office Clerk Assistant used for this Procedure?: No Estimated blood loss (mL): 2.0 Pathology: other (A. Descending duodenum B. Gastric antrum C. Gastric polyps D. Small bowel at 40cm E. Small bowel at 20cm F. Pouch) Condition: stable Disposition: PACU
[2022-10-23 12:12] VITALS: BP 120/80; PULSE 75; RESP 14; TEMP 36.3; O2SAT 97
--- NOTE | 2022-10-23 22:33 | OP_ITS ---
DATE OF SERVICE: 10/23/2022 SURGEON: Gumaro Kruse MD INDICATIONS: The patient presents for evaluation of gastroesophageal reflux, iron deficiency anemia, and history of previous pouchitis. Full consent has been obtained from her for this, including risks of bleeding and perforation. PREOPERATIVE DIAGNOSIS: POSTOPERATIVE DIAGNOSIS: PROCEDURE PERFORMED: ESTIMATED BLOOD LOSS: COMPLICATIONS: ANESTHESIA: Monitored anesthesia care. ASSISTANTS: SPECIMENS: PREOPERATIVE DIAGNOSES: Gastroesophageal reflux, anemia, and history of pouchitis. POSTOPERATIVE DIAGNOSES: Gastroesophageal reflux, anemia, and history of pouchitis, rule out celiac disease, duodenitis, gastritis, gastric polyps, small hiatal hernia, ileitis and pouchitis. DESCRIPTION OF PROCEDURE: The patient was placed in the left lateral decubitus position. The Olympus video gastroscope was passed into the posterior oropharynx and upper esophagus under direct vision. The scope was passed slowly to the distal esophagus. The gastroesophageal junction appeared at 37 cm. The gastroesophageal junction appeared normal without any sign of esophagitis nor Skaggs's esophagus. The scope entered the stomach. There was a small hiatal hernia. The scope was advanced to the pylorus. The duodenum was cannulated to the descending portion. The duodenal bulb had some areas of erythema, edema, and minimal friability. There were no ulcerations nor erosions. Biopsies were obtained in the 2nd and 3rd portions of duodenum. The scope was withdrawn back in the stomach. The gastric antrum had a mild erosive gastritis with less than 5 mm erosions. There was no ulceration nor mass. There was good peristalsis. Biopsies were obtained from the antrum. The scope was retroflexed visualizing the proximal stomach carefully, which appeared normal, other than several hyperplastic polyps, 2 of which were biopsied. There was no ulceration nor mass. The scope was straightened and withdrawn back to the esophagus. The esophageal mucosa appeared normal. The scope was withdrawn from the patient. She was turned around for the evaluation of her pouch. The evaluation of her perianal area was normal without any sign of perianal disease. The Olympus video gastroscope was passed in the anal canal. The anastomosis appeared at approximately 12 cm and this was patent. Right above this was what appeared to be an inflammatory polyp with some friability and overlying exudate. I then passed the scope to 50 cm. The small bowel mucosa above 40 cm appeared normal. From 40 cm down to the anastomosis, there was evidence of ileitis with some erosions, edema, and friability. Biopsies were obtained at 20 cm and at 40 cm. Again, the inflammatory polyp was seen just above the anastomosis. Given its gross appearance and friability, I opted not to remove it nor biopsy it as I did not think it would give us any further helpful clinical information. The scope was withdrawn back into the pouch. The pouch itself had some mild areas of erythema and erosions as well, but nothing particularly severe nor significant. The mucosa appeared friable. The scope was retroflexed visualizing the distal area carefully, which appeared to have some minimal internal hemorrhoids as well as some evidence of mild pouchitis. The scope was straightened and withdrawn from the patient. She tolerated procedure well and was returned to recovery area in stable condition. IMPRESSION: 1. Gastritis and duodenitis. 2. Rule out celiac disease. 3. Gastric polyps. 4. Small hiatal hernia. 5. Ileitis. 6. Mild pouchitis. PLAN: The results of biopsies will be checked. She does have a prescription for omeprazole at home, but reports that she has not needed from a symptomatic standpoint. However I did advise her to begin using 1 every day given the findings of some duodenitis, gastritis, and the anemia. She was advised to continue her iron supplement at least daily. However, she was advised to use it twice a day if she tolerates it from a GI standpoint. In regard to the findings in the small bowel and pouch area, she reports that she is at her baseline of her bowel movement frequency and does not think she is having symptoms of a pouchitis. She is already on Humira for her underlying rheumatologic disease. The Humira would theoretically help treat any component of her ileitis and pouchitis. We will continue to observe that, but if need be we can always try her on some topical mesalamine such as a suppository, or even something such as oral Entocort or Pentasa if we think she is having symptoms of small bowel inflammation and anemia on that basis as well. In regard to the recently elevated LFTs, I think this is more related to fatty liver and not autoimmune hepatitis given the just minimal elevation. She did have positive autoimmune studies, but I suspect those are related to her underlying rheumatologic disease that she is already on treatment for. We did review that if the LFTs do rise significantly, we would then need to have her undergo a liver biopsy for more definitive evaluation. She will be seen in the Fall for a followup visit. This has been discussed with her . PROCEDURES PERFORMED: Esophagogastroduodenoscopy with biopsies and evaluation of the ileoanal pouch to 50 cm with biopsies. MD TAMY Valenzuela/MALIK / [id number] MTDD
== END 2022-10-23 13:06 | disposition home or self-care (01) ==
PROVIDERS: PCP Internal Medicine; Visit Provider Internal Medicine
PROC: 0DJ08ZZ Inspection of Upper Intestinal Tract, Via Natural or Artificial Opening Endoscopic (ICD-10-PCS; CPT 43235; principal; 2022-10-23 11:40)
PROC: 0DJD8ZZ Inspection of Lower Intestinal Tract, Via Natural or Artificial Opening Endoscopic (ICD-10-PCS; CPT 45330; 2022-10-23 11:40)
DX: K31.7 Polyp of stomach and duodenum (principal); K29.80 Duodenitis without bleeding; K29.70 Gastritis, unspecified, without bleeding; K44.9 Diaphragmatic hernia without obstruction or gangrene; K91.850 Pouchitis; K52.9 Noninfective gastroenteritis and colitis, unspecified; R79.89 Other specified abnormal findings of blood chemistry; D50.9 Iron deficiency anemia, unspecified; K21.9 Gastro-esophageal reflux disease without esophagitis; E06.3 Autoimmune thyroiditis; Z79.899 Other long term (current) drug therapy
CPT/HCPCS: 45380; 43239; 88305; 88342

== ENCOUNTER 2023-01-01 09:00 | Outpatient (REF) | payer OTHER, SELFPAY ==
[2023-01-01 09:23] LABS: MANUAL DIFF FLAG NO
[2023-01-01 09:35] LABS: Basophils Absolute Auto 0.1 X10*3/uL (0.0-0.2); Basophils Percent Auto 1.4 % (0-2); Eosinophils Absolute Auto 0.4 X10*3/uL (0.0-0.4); Eosinophils Percent Auto 5.5 % (0-4); Hematocrit 40.8 % (37.0-47.0); Hemoglobin 13.6 g/dl (12.0-16.0); Imm Gran Abs Auto 0.02 X10*3/uL (0.00-0.03); Imm Gran Pct Auto 0.3 % (0.0-0.4); Lymphocytes Absolute Auto 2.3 X10*3/uL (1.2-4.9); Lymphocytes Percent Auto 35.3 % (20-40); Mean Corpuscular HGB Conc 33.3 g/dl (31.0-35.0); Mean Corpuscular Hemoglobin 28.3 pg (27.0-33.0); Mean Corpuscular Volume 84.8 fL (80.0-98.0); Mean Platelet Volume 10.6 fL (9.4-12.3); Monocytes Absolute Auto 0.9 X10*3/uL (0.1-1.2); Neutrophils Absolute Auto 2.8 x10*3/uL (2.0-8.3); Neutrophils Percent Auto 43.5 % (45-73); Platelet Count 278 X10*3/uL (160-400); Red Blood Count 4.81 X10*6/uL (4.20-5.50); Red Cell Distribution Width 17.1 % (11.0-16.0); White Blood Count 6.5 X10*3/uL (4.8-10.8)
[2023-01-01 10:36] LABS: Alanine Aminotransferase 58 U/L (0-31); Albumin Level 3.5 g/dL (3.5-5.0); Alkaline Phosphatase 107 U/L (39-117); Aspartate Amino Transferase 57 U/L (5-31); Bilirubin Direct 0.1 mg/dL (0.0-0.5); Bilirubin Total 0.4 mg/dL (0.0-1.0); Iron 84 mcg/dL (30-160); Percent Iron Saturation 37 % (15-50); Total Iron Binding Capacity 225 mcg/dL (228-428); Total Protein 7.5 g/dL (6.5-8.0); Unsaturated Iron Binding 141 ug/dL
[2023-01-01 10:44] LABS: Ferritin 100 ng/mL (10-250)
== END 2023-01-01 09:01 | disposition home or self-care (01) ==
LOC: HO.LAB 09:00
PROVIDERS: PCP Internal Medicine; Visit Provider Internal Medicine
DX: R79.89 Other specified abnormal findings of blood chemistry (principal); D50.8 Other iron deficiency anemias
CPT/HCPCS: 36415; 80076; 82728; 83540; 85025

== ENCOUNTER 2023-08-30 08:50 | Outpatient (REF) | payer OTHER, SELFPAY ==
[2023-08-30 10:14] LABS: HBS Num1 0.76 mIU/mL (0-7.99); HBc Num1 0.13 S/CO (0.00-0.79); HBsAGNum1 0.22 S/CO (0.00-0.99); Hepatitis B Core Antibody Nonreactive (Nonreactive); Hepatitis B Surface Antigen Negative (Negative); ~Hepatitis B Surface Antibody NONREACTIVE (Nonreactive)
[2023-09-02 11:13] LABS: TS Negative Control Passed; TS Panel A 1; TS Panel B 0; TS Positive Control Passed; TSpotTB Negative (Negative)
== END 2023-08-30 08:51 | disposition home or self-care (01) ==
LOC: HO.LAB 08:50
PROVIDERS: PCP Internal Medicine; Visit Provider Internal Medicine
DX: K50.018 Crohn's disease of small intestine with other complication (principal)
CPT/HCPCS: 36415; 80145; 82542; 86481; 86704; 86706; 87340

== ENCOUNTER 2024-04-01 10:14 | Outpatient (REF) | payer OTHER, SELFPAY ==
[2024-04-01 10:51] LABS: MANUAL DIFF FLAG NO
[2024-04-01 10:57] LABS: Basophils Absolute Auto 0.1 X10*3/uL (0.0-0.2); Basophils Percent Auto 1.3 % (0-2); Eosinophils Absolute Auto 0.7 X10*3/uL (0.0-0.4); Eosinophils Percent Auto 10.3 % (0-4); Imm Gran Abs Auto 0.01 X10*3/uL (0.00-0.03); Imm Gran Pct Auto 0.1 % (0.0-0.4); Lymphocytes Absolute Auto 2.3 X10*3/uL (1.2-4.9); Lymphocytes Percent Auto 34.3 % (20-40); Mean Corpuscular HGB Conc 32.4 g/dl (31.0-35.0); Mean Corpuscular Hemoglobin 25.6 pg (27.0-33.0); Mean Corpuscular Volume 79.1 fL (80.0-98.0); Mean Platelet Volume 10.4 fL (9.4-12.3); Monocytes Absolute Auto 0.9 X10*3/uL (0.1-1.2); Monocytes Percent Auto 14.1 % (2-11); Neutrophils Absolute Auto 2.7 x10*3/uL (2.0-8.3); Neutrophils Percent Auto 39.9 % (45-73); Platelet Count 378 X10*3/uL (160-400); Red Blood Count 4.68 X10*6/uL (4.20-5.50); Red Cell Distribution Width 15.2 % (11.0-16.0); White Blood Count 6.7 X10*3/uL (4.8-10.8)
[2024-04-01 11:13] LABS: Alanine Aminotransferase 36 U/L (0-31); Albumin Level 3.8 g/dL (3.5-5.0); Alkaline Phosphatase 108 U/L (39-117); Anion Gap 10 (12-20); Aspartate Amino Transferase 41 U/L (5-31); Bilirubin Direct 0.1 mg/dL (0.0-0.5); Bilirubin Total 0.4 mg/dL (0.0-1.0); Blood Urea Nitrogen 9 mg/dL (9-16); C Reactive Protein 1.26 mg/dL (< or = 0.50); Calcium 8.7 mg/dL (8.4-10.2); Carbon Dioxide 28 mmol/L (22-29); Chloride 104 mmol/L (96-108); Estimated Glomerular Filt Rate > 60; Glucose Random 100 mg/dL (60-115); Iron 25 mcg/dL (30-160); Percent Iron Saturation 8 % (15-50); Potassium 3.9 mmol/L (3.3-5.1); Sodium 138 mmol/L (135-145); Total Iron Binding Capacity 316 mcg/dL (228-428); Total Protein 7.8 g/dL (6.5-8.0); Unsaturated Iron Binding 291 ug/dL
[2024-04-01 11:28] LABS: Ferritin 20 ng/mL (10-250)
[2024-04-01 11:40] LABS: Folate 16.3 ng/mL (> or = 4.0); Vitamin B12 524 pg/mL (200-900)
[2024-04-01 12:00] LABS: Erythrocyte Sedimentation Rate 20 MM/HR (0-20)
== END 2024-04-01 10:15 | disposition home or self-care (01) ==
LOC: HO.10HDL 10:14
PROVIDERS: Visit Provider Internal Medicine
DX: K91.850 Pouchitis (principal); R19.7 Diarrhea, unspecified; D50.9 Iron deficiency anemia, unspecified; R79.89 Other specified abnormal findings of blood chemistry
CPT/HCPCS: 36415; 80048; 80076; 80145; 82542; 82607; 82728; 82746; 83540; 85025; 85652; 86140

== ENCOUNTER 2024-06-05 08:03 | Outpatient (RCR) | payer OTHER, SELFPAY ==
[2024-06-05 08:04] VITALS: BP 129/52; PULSE 94; RESP 18; TEMP 36.3; BMI 27.8
== END 2024-06-05 10:17 | disposition home or self-care (01) ==
LOC: HO.INF 08:03
PROVIDERS: Visit Provider Internal Medicine
DX: K52.9 Noninfective gastroenteritis and colitis, unspecified (principal); K91.850 Pouchitis
CPT/HCPCS: 96365; J3358

== ENCOUNTER 2024-11-13 09:05 | Outpatient (REF) | payer OTHER, SELFPAY ==
--- OUTSIDE RECORDS SUMMARY | 2024-11-13 09:26 | XMS_ITS | Patient Health Record ---
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 Name Role Phone Sara Conroy Primary Care Provider Gumaro Blandon [phone] Allergies Allergen (clinical drug ingredient) Drug/Non Drug Allergy documented on EMR Reaction Allergy Type Onset Date Status Vicodin vomiting Drug Allergy Active Results Component Value Reference Range Notes Ferritin Reviewed date:04/06/2024 12:11:33 PM Interpretation: Performing Lab:[facility], [address] [place] [phone] Notes/Report: Ferritin 20 10-250 ng/mL Vitamin B12 and Folate Reviewed date:04/06/2024 12:11:42 PM Interpretation: Performing Lab:[facility], [address] [place] [phone] Notes/Report: Vitamin B12 524 200-900 pg/mL NORMAL 200-900 PG/ML INDETERMINATE 160-199 PG/ML DEFICIENT < 160 PG/ML Folate 16.3 > or = 4.0 ng/mL Reference Values: > or = 4.0 ng/mL < 4.0 ng/mL suggests folate deficiency Methotrexate, aminopterin and folinic acid (leucovorin) are chemotherapeutic agents whose molecular structures are similar to folate; therefore, the [facility] folate assay cannot be used for patients using these drugs. Shaq BETANCUR Reviewed date:04/16/2024 11:47:27 PM Interpretation: Performing Lab:[facility], [address] [place] [phone] Notes/Report: Shaq BETANCUR SEE NOTE SEE SCA NNED RESULTS IN EMR Complete Blood Count Auto Di ff Reviewed date:04/16/2024 11:48:20 PM Interpretation: Performing Lab:[facility], [address] [place] [phone] Notes/Report: White Blood Count 6.7 4.8-10.8 X10*3/uL Red Blood Count 4.68 4.20-5.50 X10*6/uL Hemoglobin 12.0 12.0-16.0 g/dl Hematocrit 37.0 37.0-47.0 % Mean Corpuscular Volume 79.1 80.0-98.0 fL Mean Corpuscular Hemoglobin 25.6 27.0-33.0 pg Mean Corpuscular HGB Conc 32.4 31.0-35.0 g/dl Red Cell Distribution Width 15.2 11.0-16.0 % Platelet Count 378 160-400 X10*3/uL Mean Platelet Volume 10.4 9.4-12.3 fL Neutrophils Percent Auto 39.9 45-73 % Imm Gran Pct Auto 0.1 0.0-0.4 % Lymphocytes Percent Auto 34.3 20-40 % Monocytes Percent Auto 14.1 2-11 % Eosinophils Percent Auto 10.3 0-4 % Basophils Percent Auto 1.3 0-2 % NRBC Pct Auto 0.0 0.0-0.2 /100WBC Neutrophils Absolute Auto 2.7 2.0-8.3 x10*3/u L Imm Gran Abs Auto 0.01 0.00-0.03 X10*3/uL Lymphocytes Absolute Auto 2.3 1.2-4.9 X10*3/u L Monocytes Absolute Auto 0.9 0.1-1.2 X10*3/uL Eosinophils Absolute Auto 0.7 0.0-0.4 X10*3/u L Basophils Absolute Auto 0.1 0.0-0.2 X10*3/uL NRBC Abs Auto 0.000 0.0-0.012 X10*3/uL Erythrocyte Sedimentation Ra te Reviewed date:04/06/2024 12:11:50 PM Interpretation: Performing Lab:[facility], [address] [place] [phone] Notes/Report: Erythrocyte Sedimentation Rate 20 0-20 MM/HR Patients with polycythemia and many hemoglobin abnormalities may have depressed sed rates whereas patients with anemia may have elevated sed rates. Liver Panel Reviewed date:04/06/2024 12:13:14 PM Interpretation: Performing Lab:[address] [phone] Notes/Report: Bilirubin Total 0.4 0.0-1.0 mg/dL Bilirubin Direct 0.1 0.0-0.5 mg/dL Aspartate Amino Transferase 41 5-31 U/L Alanine Aminotransferase 36 0-31 U/L Total Protein 7.8 6.5-8.0 g/dL Albumin Level 3.8 3.5-5.0 g/dL Alkaline Phosphatase 108 39-117 U/L Basic Metabolic Panel Reviewed date:04/06/2024 12:12:45 PM Interpretation: Performing Lab:[address] [phone] Notes/Report: Sodium 138 135-145 mmol/L Potassium 3.9 3.3-5.1 mmol/L Chloride 104 96-108 mmol/L Carbon Dioxide 28 22-29 mmol/L Anion Gap 10 12-20 Blood Urea Nitrogen 9 9-16 mg/dL Creatinine 0.89 0.5-1.4 mg/dL Estimated Glomerular Filt Rate > 60 Chronic Kidney Disease: Estimated GFR < 60 mL/min/1.73m2 Severe Kidney Disease: Estimated GFR < 15 mL/min/1.73m2 Glucose Random 100 60-115 mg/dL Calcium 8.7 8.4-10.2 mg/dL IRON PROFILE Reviewed date:04/06/2024 12:12:10 PM Interpretation: Performing Lab:[address] [phone] Notes/Report: Iron 25 30-160 mcg/dL Total Iron Binding Capacity 316 228-428 mcg/d L Percent Iron Saturation 8 15-50 % Unsaturated Iron Binding 291 C Reactive Protein Reviewed date:04/06/2024 12:11:59 PM Interpretation: Performing Lab:[address] [phone] Notes/Report: C Reactive Protein 1.26 < or = 0.50 mg/dL Reason For Referral No Information Medications Medication SIG (Take, Route, Frequency, Duration) Notes Start Date End Date Status Calcium + D + K 750-500-40 MG-UNT-MCG 1 tablet with meals Orally Twice a day Active Multivitamin Adult - Orally also turmeric Active Ciprofloxacin 500 MG/5ML (10%) 5 ml Orally Twice a day Not-Taking Vitamin D3 Active Cipro 500 MG 1 tablet Orally every 12 hrs for 10 day(s) 07/04/2017 Not-Taking Flagyl 500 MG 1 tablet Orally BID for 10 day(s) 08/17/2015 Not-Taking Iron 325 (65 Fe) MG 1 tablet Orally daily for 30 days Active Cipro 500 MG 1 tablet Orally every 12 hrs for 10 day(s) Uses just as needed 01/28/2020 Not-Taking Mesalamine 1000 MG 1 suppository at bedtime Rectal QHS/prn 05/27/2014 Not-Taking Cipro 500 MG 1 Orally every 12 hrs for 14 days as needed 07/08/2024 Not-Taking Probiotic Orally once a day Ac tive metroNIDAZOLE 500 MG 1 tablet Orally Twice a day for 14 days 05/23/2022 Not-Taking Cipro 500 MG 1 tablet Orally BID for 10 days 06/30/2015 Not-Taking Citalopram Hydrobromide 20 MG 1 tablet Orally Once a day Active Cipro 500 MG 1 tablet Orally every 12 hrs for 14 days 05/23/2022 Not-Taking Levothyroxine Sodium 75 MCG Oral for 30 Active Flagyl 500 MG 1 tablet Orally every 8 hrs for 10 day(s) 07/04/2017 Not-Taking Tylenol PRN Active Stelara 90 MG/ML 1 injection Subcutaneous Every 8 weeks for 56 days 06/13/2024 Active Anti-Diarrheal 1 MG/5ML 10 ml Orally prn Not-Taking Omeprazole 20 MG 1 capsule 30 minutes before morning meal Orally three times a week for 90 days 12/20/2022 Active Immunizations Vaccine Route Administration Date Status Comme nts Pneumococcal Unknown 12/08/2015 Administered prevnar 13 Influenza Unknown 12/03/2019 Administered Influenza Unknown 01/19/2021 Administered Influenza Unknown 03/04/2024 Administered Problems Problem Type SNOMED Code ICD Code Onset Dates Problem Status W/U Status Risk Notes Problem Esophageal reflux (464700663) Esophageal reflux (K21.9) Active confirmed Problem Rectal bleeding (23114322) Rectal bleeding (K62.5) Active confirmed Problem 47982335 Ileitis (K52.9) Active confirmed Problem Pseudopolyposis of colon (37036411) Inflammatory polyps of colon without complications (K51.40) Active confirmed Problem 278316788 Pouchitis (K91.850) Active confirmed Problem Iron deficiency anemia (81236396) Iron deficiency anemia (D50.9) Active confirmed Problem 458144390 Elevated liver function tests (R79.89) Active confirmed Problem 539738490 Fatty liver (K76.0) Active confirmed Problem Gastric polyp (14018984) Gastric polyp (K31.7) Active confirmed Problem 59824493 Other iron deficiency anemia (D50.8) Active confirmed Problem 29314540 Iron deficiency anemia, unspecified iron deficiency anemia type (D50.9) Active confirmed Problem 79112498 Diarrhea, unspecified type (R19.7) Active confirmed Problem Erosive gastritis (6213797258299267) Erosive gastritis (K29.60) Active confirmed Problem Crohn''s disease of small intestine with other complication (K50.018) Active confirmed Problem 297747780 Gastroesophageal reflux disease, unspecified whether esophagitis present (K21.9) Active confirmed Vital Signs Temperature 97.3 degrees Fahrenheit 09/26/2024 Blood pressure diastolic 01 mm Hg 09/26/2024 Height 65 in 09/26/2024 Blood pressure systolic 001 mm Hg 09/26/2024 Weight 167.6 lbs 09/26/2024 BMI 27.89 kg/m2 09/26/2024 Encounters Encounter Location Date Provider Diagnosis [facility] [address] [place] [id number] 04/01/2024 Gumaro Kruse Pouchitis K91.850 ; Diarrhea, unspecified type R19.7 ; Iron deficiency anemia, unspecified iron deficiency anemia type D50.9 ; Elevated liver function tests R79.89 ; Erosive gastritis K29.60 ; Ileitis K52.9 ; Crohn''s disease of small intestine with other complication K50.018 and Gastroesophageal reflux disease, unspecified whether esophagitis present K21.9 [facility] [address] [place] [phone] 09/26/2024 Gumaro Kruse Pouchitis K91.850 ; Iron deficiency anemia, unspecified iron deficiency anemia type D50.9 and Gastroesophageal reflux disease, unspecified whether esophagitis present K21.9 [facility] [address] [place] [address] 03/27/2024 Gumaro Kruse [facility] [address] [place] [address] 03/28/2024 Gumaro Kruse [facility] [address] [facility] [place] [address] 04/13/2024 Gumaro Kruse [facility] [address] [place] [address] 07/08/2024 Gumaro Kruse Pouchitis K91.850 an d Rectal bleeding K62.5 [facility] [address] [facility] [place] [address] 08/06/2024 Gumaro Kruse [facility] [address] [facility] [place] [address] 10/10/2024 Gumaro Kruse Assessments Encounter Date Diagnosis (ICD Code) Assessment Notes Treatment Notes Treatment Clinical Notes Section Notes 04/01/2024 Pouchitis (ICD-10 - K91.850) Overall, Cale appears very well from a clinical standpoint. Her previous anemia seems to be stable based on her exam and clinical history. However, her ongoing GI symptoms of intermittent urgency and bleeding are quite suggestive of ongoing problems with pouchitis and the previously seen ileitis. I am going to repeat her Humira levels and if they remain in the sub-therapeutic range with a detectable level of antibodies again I will plan to change her biologic to something that would hopefully be more effective for her GI symptoms, the suspected erythema nodosum, and her rheumatologic symptoms. If the Humira level is low but the antibodies are nondetectable I would then plan to increase the Humira to a weekly dose instead. Other treatment options besides Humira could include Entyvio or Stelara. I shall also check other laboratories in regard to her previous anemia and elevated LFTs. I did advise her to continue her iron supplements. Depending on her clinical course we may need to do a repeat endoscopic evaluation of her pouch and distal small bowel. 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 I did advise her to continue her omeprazole for the symptomatic relief of her reflux as well. I will plan to see Cale in 6 months for followup visit will be in touch with her prior to that if we need to either increase the frequency of the Humira injection or change her biologic agent altogether. I did advise her to contact me prior to that if she has any problems or questions I can be of assistance with. Cale was comfortable with this plan. Thank you again for allowing me to participate in Cale's care. I shall continue to keep you advised of her progress. 04/01/2024 Diarrhea, unspecified type (ICD-10 - R19.7) Overall, Cale appears very well from a clinical standpoint. Her previous anemia seems to be stable based on her exam and clinical history. However, her ongoing GI symptoms of intermittent urgency and bleeding are quite suggestive of ongoing problems with pouchitis and the previously seen ileitis. I am going to repeat her Humira levels and if they remain in the sub-therapeutic range with a detectable level of antibodies again I will plan to change her biologic to something that would hopefully be more effective for her GI symptoms, the suspected erythema nodosum, and her rheumatologic symptoms. If the Humira level is low but the antibodies are nondetectable I would then plan to increase the Humira to a weekly dose instead. Other treatment options besides Humira could include Entyvio or Stelara. I shall also check other laboratories in regard to her previous anemia and elevated LFTs. I did advise her to continue her iron supplements. Depending on her clinical course we may need to do a repeat endoscopic evaluation of her pouch and distal small bowel. 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 I did advise her to continue her omeprazole for the symptomatic relief of her reflux as well. I will plan to see Cale in 6 months for followup visit will be in touch with her prior to that if we need to either increase the frequency of the Humira injection or change her biologic agent altogether. I did advise her to contact me prior to that if she has any problems or questions I can be of assistance with. Cale was comfortable with this plan. Thank you again for allowing me to participate in Cale's care. I shall continue to keep you advised of her progress. 09/26/2024 Pouchitis (ICD-10 - K91.850) Overall, Cale appears well and definitely seems to be improved on the Stelara as opposed to the previous Humira. Her pouchitis symptoms seem to be stable and her bowel movements are currently back at their baseline. She seems to be tolerating the Stelara without any adverse effects thus far. I did advise her to continue the every 8-week subcutaneous injection but will check a Stelara level and antibodies just prior to her next injection in 2 months. I did advise her that we could increase the Stelara injections to every 4 weeks depending upon the blood work and her clinical course. I have advised her to increase the iron pill to twice a day on a regular basis and we will check a blood count and iron studies when she has her Stelara lab work in 2 months as well. I did advise her to continue the omeprazole as needed for reflux symptoms. I will plan to see her in 6 months for a follow-up visit but did advise her to certainly contact me prior to that if she has any problems or questions I can be of assistance with. Cale was comfortable with this plan. Thank you again for allowing me to participate in Cale's care. I shall continue to keep you advised of her progress. 07/08/2024 Rectal bleeding (ICD-10 - K62.5) 07/08/2024 Pouchitis (ICD-10 - K91.850) 04/01/2024 Iron deficiency anemia, unspecified iron deficiency anemia type (ICD-10 - D50.9) Overall, Cale appears very well from a clinical standpoint. Her previous anemia seems to be stable based on her exam and clinical history. However, her ongoing GI symptoms of intermittent urgency and bleeding are quite suggestive of ongoing problems with pouchitis and the previously seen ileitis. I am going to repeat her Humira levels and if they remain in the sub-therapeutic range with a detectable level of antibodies again I will plan to change her biologic to something that would hopefully be more effective for her GI symptoms, the suspected erythema nodosum, and her rheumatologic symptoms. If the Humira level is low but the antibodies are nondetectable I would then plan to increase the Humira to a weekly dose instead. Other treatment options besides Humira could include Entyvio or Stelara. I shall also check other laboratories in regard to her previous anemia and elevated LFTs. I did advise her to continue her iron supplements. Depending on her clinical course we may need to do a repeat endoscopic evaluation of her pouch and distal small bowel. 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 I did advise her to continue her omeprazole for the symptomatic relief of her reflux as well. I will plan to see Cale in 6 months for followup visit will be in touch with her prior to that if we need to either increase the frequency of the Humira injection or change her biologic agent altogether. I did advise her to contact me prior to that if she has any problems or questions I can be of assistance with. Cale was comfortable with this plan. Thank you again for allowing me to participate in Cale's care. I shall continue to keep you advised of her progress. 09/26/2024 Iron deficiency anemia, unspecified iron deficiency anemia type (ICD-10 - D50.9) Use the Iron pill twice a day on a regular basis for the anemia Overall, Cale appears well and definitely seems to be improved on the Stelara as opposed to the previous Humira. Her pouchitis symptoms seem to be stable and her bowel movements are currently back at their baseline. She seems to be tolerating the Stelara without any adverse effects thus far. I did advise her to continue the every 8-week subcutaneous injection but will check a Stelara level and antibodies just prior to her next injection in 2 months. I did advise her that we could increase the Stelara injections to every 4 weeks depending upon the blood work and her clinical course. I have advised her to increase the iron pill to twice a day on a regular basis and we will check a blood count and iron studies when she has her Stelara lab work in 2 months as well. I did advise her to continue the omeprazole as needed for reflux symptoms. I will plan to see her in 6 months for a follow-up visit but did advise her to certainly contact me prior to that if she has any problems or questions I can be of assistance with. Cale was comfortable with this plan. Thank you again for allowing me to participate in Cale's care. I shall continue to keep you advised of her progress. 04/01/2024 Elevated liver function tests (ICD-10 - R79.89) Overall, Cale appears very well from a clinical standpoint. Her previous anemia seems to be stable based on her exam and clinical history. However, her ongoing GI symptoms of intermittent urgency and bleeding are quite suggestive of ongoing problems with pouchitis and the previously seen ileitis. I am going to repeat her Humira levels and if they remain in the sub-therapeutic range with a detectable level of antibodies again I will plan to change her biologic to something that would hopefully be more effective for her GI symptoms, the suspected erythema nodosum, and her rheumatologic symptoms. If the Humira level is low but the antibodies are nondetectable I would then plan to increase the Humira to a weekly dose instead. Other treatment options besides Humira could include Entyvio or Stelara. I shall also check other laboratories in regard to her previous anemia and elevated LFTs. I did advise her to continue her iron supplements. Depending on her clinical course we may need to do a repeat endoscopic evaluation of her pouch and distal small bowel. 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 I did advise her to continue her omeprazole for the symptomatic relief of her reflux as well. I will plan to see Cale in 6 months for followup visit will be in touch with her prior to that if we need to either increase the frequency of the Humira injection or change her biologic agent altogether. I did advise her to contact me prior to that if she has any problems or questions I can be of assistance with. Cale was comfortable with this plan. Thank you again for allowing me to participate in Cale's care. I shall continue to keep you advised of her progress. 09/26/2024 Gastroesophageal reflux disease, unspecified whether esophagitis present (ICD-10 - K21.9) Continue the omeprazole for the reflux Overall, Cale appears well and definitely seems to be improved on the Stelara as opposed to the previous Humira. Her pouchitis symptoms seem to be stable and her bowel movements are currently back at their baseline. She seems to be tolerating the Stelara without any adverse effects thus far. I did advise her to continue the every 8-week subcutaneous injection but will check a Stelara level and antibodies just prior to her next injection in 2 months. I did advise her that we could increase the Stelara injections to every 4 weeks depending upon the blood work and her clinical course. I have advised her to increase the iron pill to twice a day on a regular basis and we will check a blood count and iron studies when she has her Stelara lab work in 2 months as well. I did advise her to continue the omeprazole as needed for reflux symptoms. I will plan to see her in 6 months for a follow-up visit but did advise her to certainly contact me prior to that if she has any problems or questions I can be of assistance with. Cale was comfortable with this plan. Thank you again for allowing me to participate in Cale's care. I shall continue to keep you advised of her progress. 04/01/2024 Erosive gastritis (ICD-10 - K29.60) Overall, Cale appears very well from a clinical standpoint. Her previous anemia seems to be stable based on her exam and clinical history. However, her ongoing GI symptoms of intermittent urgency and bleeding are quite suggestive of ongoing problems with pouchitis and the previously seen ileitis. I am going to repeat her Humira levels and if they remain in the sub-therapeutic range with a detectable level of antibodies again I will plan to change her biologic to something that would hopefully be more effective for her GI symptoms, the suspected erythema nodosum, and her rheumatologic symptoms. If the Humira level is low but the antibodies are nondetectable I would then plan to increase the Humira to a weekly dose instead. Other treatment options besides Humira could include Entyvio or Stelara. I shall also check other laboratories in regard to her previous anemia and elevated LFTs. I did advise her to continue her iron supplements. Depending on her clinical course we may need to do a repeat endoscopic evaluation of her pouch and distal small bowel. 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 I did advise her to continue her omeprazole for the symptomatic relief of her reflux as well. I will plan to see Cale in 6 months for followup visit will be in touch with her prior to that if we need to either increase the frequency of the Humira injection or change her biologic agent altogether. I did advise her to contact me prior to that if she has any problems or questions I can be of assistance with. Cale was comfortable with this plan. Thank you again for allowing me to participate in Cale's care. I shall continue to keep you advised of her progress. 04/01/2024 Ileitis (ICD-10 - K52.9) Overall, Cale appears very well from a clinical standpoint. Her previous anemia seems to be stable based on her exam and clinical history. However, her ongoing GI symptoms of intermittent urgency and bleeding are quite suggestive of ongoing problems with pouchitis and the previously seen ileitis. I am going to repeat her Humira levels and if they remain in the sub-therapeutic range with a detectable level of antibodies again I will plan to change her biologic to something that would hopefully be more effective for her GI symptoms, the suspected erythema nodosum, and her rheumatologic symptoms. If the Humira level is low but the antibodies are nondetectable I would then plan to increase the Humira to a weekly dose instead. Other treatment options besides Humira could include Entyvio or Stelara. I shall also check other laboratories in regard to her previous anemia and elevated LFTs. I did advise her to continue her iron supplements. Depending on her clinical course we may need to do a repeat endoscopic evaluation of her pouch and distal small bowel. 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 I did advise her to continue her omeprazole for the symptomatic relief of her reflux as well. I will plan to see Cale in 6 months for followup visit will be in touch with her prior to that if we need to either increase the frequency of the Humira injection or change her biologic agent altogether. I did advise her to contact me prior to that if she has any problems or questions I can be of assistance with. Cale was comfortable with this plan. Thank you again for allowing me to participate in Cale's care. I shall continue to keep you advised of her progress. 04/01/2024 Crohn''s disease of small intestine with other complication (ICD-10 - K50.018) Overall, Cale appears very well from a clinical standpoint. Her previous anemia seems to be stable based on her exam and clinical history. However, her ongoing GI symptoms of intermittent urgency and bleeding are quite suggestive of ongoing problems with pouchitis and the previously seen ileitis. I am going to repeat her Humira levels and if they remain in the sub-therapeutic range with a detectable level of antibodies again I will plan to change her biologic to something that would hopefully be more effective for her GI symptoms, the suspected erythema nodosum, and her rheumatologic symptoms. If the Humira level is low but the antibodies are nondetectable I would then plan to increase the Humira to a weekly dose instead. Other treatment options besides Humira could include Entyvio or Stelara. I shall also check other laboratories in regard to her previous anemia and elevated LFTs. I did advise her to continue her iron supplements. Depending on her clinical course we may need to do a repeat endoscopic evaluation of her pouch and distal small bowel. 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 I did advise her to continue her omeprazole for the symptomatic relief of her reflux as well. I will plan to see Cale in 6 months for followup visit will be in touch with her prior to that if we need to either increase the frequency of the Humira injection or change her biologic agent altogether. I did advise her to contact me prior to that if she has any problems or questions I can be of assistance with. Cale was comfortable with this plan. Thank you again for allowing me to participate in Cale's care. I shall continue to keep you advised of her progress. 04/01/2024 Gastroesophageal reflux disease, unspecified whether esophagitis present (ICD-10 - K21.9) Overall, Cale appears very well from a clinical standpoint. Her previous anemia seems to be stable based on her exam and clinical history. However, her ongoing GI symptoms of intermittent urgency and bleeding are quite suggestive of ongoing problems with pouchitis and the previously seen ileitis. I am going to repeat her Humira levels and if they remain in the sub-therapeutic range with a detectable level of antibodies again I will plan to change her biologic to something that would hopefully be more effective for her GI symptoms, the suspected erythema nodosum, and her rheumatologic symptoms. If the Humira level is low but the antibodies are nondetectable I would then plan to increase the Humira to a weekly dose instead. Other treatment options besides Humira could include Entyvio or Stelara. I shall also check other laboratories in regard to her previous anemia and elevated LFTs. I did advise her to continue her iron supplements. Depending on her clinical course we may need to do a repeat endoscopic evaluation of her pouch and distal small bowel. 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 I did advise her to continue her omeprazole for the symptomatic relief of her reflux as well. I will plan to see Cale in 6 months for followup visit will be in touch with her prior to that if we need to either increase the frequency of the Humira injection or change her biologic agent altogether. I did advise her to contact me prior to that if she has any problems or questions I can be of assistance with. Cale was comfortable with this plan. Thank you again for allowing me to participate in Cale's care. I shall continue to keep you advised of her progress. Plan Of Treatment Pending Test Test Name Order Date CHEM 7 PROFILE 04/01/2024 LIVER PROFILE 09/19/2022 LIVER PROFILE 04/01/2024 LIVER PROFILE 10/30/2022 IRON + IBC (FE) 10/30/2022 IRON + IBC (FE) 09/26/2024 IRON + IBC (FE) 07/08/2024 IRON + IBC (FE) 04/01/2024 CRP 07/08/2024 CRP 04/01/2024 CBC w DIFF 11/10/2013 CBC w DIFF 10/30/2022 CBC w DIFF 09/26/2024 CBC w DIFF 07/08/2024 CBC w DIFF 04/01/2024 SED RATE (ESR) 07/08/2024 SED RATE (ESR) 04/01/2024 HEPATITIS B, C PROFILE 09/19/2022 HEPATITIS B PROFILE 08/21/2023 CLOSTRIDIUM DIFF TOXIN A&B (C DIFF) 05/2017 CELIAC PANEL #10 09/19/2022 FLUOR. ANTINUCLEAR AB SCREEN (FARIDEH) 09/01 STOOL WBC 07/03/2017 Ferritin 07/08/2024 Ferritin 10/30/2022 Ferritin 09/26/2024 Prometheus Anser UST 09/26/2024 Prometheus ANSER ADA 08/21/2023 T Spot TB 08/21/2023 Future Test Test Name Order Date FLEXIBLE SIGMOIDOSCOPY, DIAGNOSTIC 09/19 UPPER GI ENDOSCOPY 09/19/2022 Next Appt Details Provider Name:Gumaro Kruse , 03/31/2025 09:30:00 AM, [address] [facility], [address], [place], [address], Insurance Providers Payer Name Payer Address Payer Phone Subscriber Number Group Number Insured Name Patient Relationship to Insured Coverage Start Date Coverage End Date [facility] [address] [place] [address] [id number] CALE BLACK Self - patient is the insured Medical (General) History Medical History History ICD Code Ulcerative colitis- diagnose d in approximately 1993 with subsequent need for proctocolectomy [place] ileoanal [place] [address] Cartwright(surgery as below) due to refractory disease and need for chronic steroids- documented pouchitis with endoscopy in 2003- the small bowel above the pouch was normal- treated with intermittent Cipro/Flagyl. She saw Dr. Barry in 09/2015 for ? of a fistula/abscess but w/u was negative, including a MRI of the pelvis Denies DC,DM,CVA,Lung disease,renal dise ase Sees Dr. Marshall for enterop athic(Rheumatoid) arthritis- on Symponi > 5 years- switched to Humira for insurance purposes. 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 He asked me to prescribe for her pouchitis diagnosis instead and I agreed to do that. Reported Iritis in her Pouchitis- treated with inte rmittent Cipro and Flagyl- - -started daily probiotics in 03/2016 Malaika's thyroiditis Iron deficiency anemia in with a hemoglobin of less than 9 resolved after initiation of omeprazole and supplemental iron, including at least one iron infusion in October of 2022 with the vessel slag worker, Dr. Gillespie, at [facility] Upper endoscopy in September revealed a small hiatal hernia, duodenitis, and gastritis. There was no esophagitis nor Skaggs's esophagus. Duodenal biopsies were negative for celiac disease and gastric biopsies were negative for H. pylori. She also had benign gastric polyps. She was started on omeprazole at that time. Laboratories for celiac disease were negative at that time as well. Evaluation of her pouch in 2022 revealed only minimal changes of pouchitis, but there was evidence of ileitis extending up to 40 cm, including an inflammatory polyp at the anastomosis that was not removed. She was not treated for these endoscopic changes as she was otherwise asymptomatic without any symptoms of pouchitis and she was already on Humira for her underlying rheumatologic condition Elevated LFTs in 2022 felt t o be in relation to fatty liver. The liver workup was negative, although her GALINA and smooth muscle antibodies were positive. However, I felt this was in relation to her underlying rheumatologic condition and did not reflect autoimmune hepatitis since the LFTs were just minimally elevated. She has not had a liver biopsy as of the office visit in March of 2023 Humira level was barely dete ctable at 1.6 in August of 2023 and antibody levels were slightly elevated at that time as well. At that time she was using Humira every other week. She was switched to Stelara in early May 2024 due to refractory symptoms on the Humira with an associated low level of the Humira and positive antibodies Surgical History Surgery Date(Month/Year) Surgery for an anterior anal fistula by Dr. Barry in 2007--she had a fistulotomy at that time with good resolution of her symptoms Breast biopsy-left--benign Bunion surgery L4/L5 fusion One-stage proctocolectomy wi ileoanal anastomosis--she had to have a temporary ileostomy after she had to undergo an exploratory laparotomy for intra-abdominal abcesses shortly after the original surgery 1996
--- OUTSIDE RECORDS SUMMARY | 2024-11-13 09:26 | XMS_ITS | Encounter Summary ---
Author Organization [facility] [place] [address] Care Team Providers Care Kick Press Operator Name Role Phone Sara Conroy MD Primary Care Provider [phone] Reason for Visit * Reason Onset Date Comments Advice Only 10/13/2024 Encounter Details Date Type Department Care Team (Late st Contact Info) Description 10/13/2024 Telephone [facility] [address] [place] [address] Chrissy Canada PA [address] [place] [address] Advice Only Social History Tobacco Use Types Packs/Day Years Used Date Smoking Tobacco: Former Smokeless Tobacco: Never Alcohol Use Standard Drinks/Week Comments Yes 0 (1 standard drink = 0.6 oz pur e alcohol) Housing Instability Answer Date Recorde d Are you worried that in the next 2 months you may not have stable housing? No 05/22/2024 Food Access & Nutrition Answer Date Rec orded Do you have access to a vari ety of food including fruits and vegetables? Yes 05/22/2024 Access to Healthcare Answer Date Record ed Within the last 3 months, ines abbott many times did you visit the emergency department for your medical care? 0 05/22/2024 Health Literacy Answer Date Recorded How often do you need to hav e someone help you when you read instructions, pamphlets, or other written material from your doctor or pharmacy? Never 05/22/2024 Caregiver: How often do you need to have someone help you when you read instructions, pamphlets, or other written material from your doctor or pharmacy? Not on file 05/22/2024 Financial Risk Answer Date Recorded How hard is it for you to pa y for the very basics like food, housing, medical care, and air conditioning / heating? Not very hard 05/22/2024 Transportation Answer Date Recorded Has the lack of transportati on kept you from meetings, work, or from getting things needed for daily living? No Has the lack of transportati on kept you from medical appointments or from getting medications? No 05/22/2024 Social Isolation Answer Date Recorded How often do you feel lonely or isolated from th ose around you? Never 05/22/2024 Food Risk Answer Date Recorded Within the past 12 months we worried whether our food would run out before we got money to buy more. Never true 05/22/2024 Within the past 12 months th e food we bought just didn't last and we didn't have money to get more. Never true 05/22/2024 Dependent Care Answer Date Recorded Do you need help finding or paying for care for your loved ones. For example, exceptional children teacher or elderly care for an older adult? No 05/22/2024 Education Answer Date Recorded Do you think completing more education or training, like finishing a GED, going to college, or learning a trade, would be helpful for you? No 05/22/2024 Employment and Income Answer Date Recor ded During the last four weeks, have you been actively looking for work? No 05/22/2024 Living Situation Answer Date Recorded What is your living situation? 0 05/22/2024 Comments Unknown Sex and Gender Information Value Date Recorded Sex Assigned at Female 06/03/2024 1:12 PM EST Legal Sex Female 6:17 AM EST Gender Identity Female 06/03/2024 1:12 PM EST Sexual Orientation Straight 06/03/2024 1: 12 PM EST documented as of this encounter Progress Notes * Surekha Horton RN - 10/20/2024 1:31 PM EDT Called and spoke with patient Message read She verbalizes understanding * JANIE Chávez - 10/14/2024 6:07 PM EDT With thyroid levels normal I doubt this is related to her thyroid. I suggest she schedule follow-upwith primary care * Hilda Lomeli - 10/13/2024 8:44 AM EDT Several finger nails that are lifting off the nail bed. Asking if this could be related to her thyroid disease, andres's ? Is there anything she can do, please advise. documented in this encounter Plan of Treatment Upcoming Encounters Date Type Department Care Team (Late st Contact Info) Description 11/27/2024 9:15 AM EDT Office Visit [facility] Hematology Oncology [address] [place] [phone] Horace Gillespie MD [address] [place] [phone] 09/07/2025 9:00 AM EDT Office Visit Internal Medicine - [place] [address] [phone] Sara Conroy MD [address] [phone] 09/08/2025 9:30 AM EDT Office Visit Endocrinology - [address] [phone] Chrissy Canada PA [address] [place] [address] documented as of this encounter Visit Diagnoses Not on filedocumented in this encounter Additional Health Concerns Assessment Noted Time PHQ-9 Depression Total Score: 0 05/22/19 25 5:10 PM EST documented as of this encounter Care Teams Kick Press Operator Relationship Specialty Start Date End Date Sara Conroy MD [address] [phone] PCP - General Internal Medicine 02/14/21 documented as of this encounter
--- OUTSIDE RECORDS SUMMARY | 2024-11-13 09:26 | XMS_ITS ---
Author Name [facility] Organization Unknown Care Team Organization Name Specialty Phone Email Start Date End Da te [facility] Primary Care 01/30/2023 11/19/19 [facility] Ryan Lau Primary Care 10/05/2022 11/19/2023 [facility] Primary Care 04/10/2022 11/19/19 [facility] Primary Care 02/07/2022 11/19/19 24
--- OUTSIDE RECORDS SUMMARY | 2024-11-13 09:27 | XMS_ITS | Clinical Summary ---
Author Organization [facility] Address [address] [place] [address] Care Team Providers Care Public Relations Associate Name Role Phone Sara Conroy MD Primary Care Provider [phone] Allergies Active Allergy Reactions Criticality Noted Date Comments Hydrocodone-Acetamin ophen Other (See Comments) 10/24/2022 Nausea and vomiting Medications Medication Sig Dispensed Refills Start Date End Date Status ferrous sulfate 325 (65 FE) MG tablet Take 1 tablet (325 mg total) by mouth every morning with breakfast. 0 Active citalopram (CeleXA) 20 MG tablet Take 1 tablet (20 mg total) by mouth daily. 0 Active levothyroxine (SYNTHROID) tablet 75 mcg Take 1 tablet (75 mcg total) by mouth every morning on an empty stomach. 0 Active adalimumab (Humira Pen) 40 MG/0.4ML prefilled pen injector Inject under the skin. Inject 40 mg as directed every 14 days. 0 Active MULTIPLE VITAMINS PO Take by mouth. Take by mouth 0 Active Calcium-Vitamins C & D (CALCIUM/C/D PO) Take by mouth. Take by mouth 0 Active PROBIOTIC PRODUCT PO Take by mouth. Take by mouth 0 Active omeprazole (PriLOSEC) 20 MG capsule Take 1 capsule (20 mg total) by mouth daily. 0 Active Active Problems Problem Noted Date Diagnosed Date Iron deficiency anemia due to chronic blood loss 10/25/2022 Social History Tobacco Use Types Packs/Day Years Used Date Smoking Tobacco: Never Assessed Sex and Gender Information Value Date Recorded Sex Assigned at Female 11/03/2022 3:22 PM EDT Gender Identity Not on file Sexual Orientation Not on file Job Start Date Occupation Industry Not on file Not on file Not on file Last Filed Vital Signs Vital Sign Reading Time Taken Comments Blood Pressure 117/66 11/26/2023 9:09 AM EDT Pulse 92 11/26/2023 9:09 AM EDT Temperature 36.6 C (97.8 F) 11/26/2023 9:09 AM EDT Respiratory Rate - - Oxygen Saturation 99% 11/26/2023 9:09 AM EDT Inhaled Oxygen Concentration - - Weight 74.8 kg (165 lb) 11/26/2023 9:09 AM EDT Height 165.1 cm (5' 5 ) 10/25/2022 11:46 AM EDT Body Mass Index 27.46 10/25/2022 11:46 AM EDT Plan of Treatment Health Maintenance Due Date Last Done Comments Hepatitis B Vaccines (1 of 3 - 3-dose series) 1965 Depression Screening 1977 BMI Counseling 1983 Preventative Health Evaluation 1983 Cervical Cancer Screening (Pap Smear) 1986 Colon Cancer Screening (Colonoscopy) 2010 Breast Cancer Screening (Mammogram) 2015 Shingrix-Zoster Vaccine (1 of 2) 2015 COVID-19 Vaccine ( season) 2023 02/07/2021, 07/14/2020, 06/22/2020 Influenza Vaccine (#1) 2024 9, 12/04/2017, 11/13/2016, Additional history exists DTap / Tdap / Td (2 - Td or Tdap) 05/24/2027 05/24/2017 Pneumococcal Vaccine Aged Out 12/07/2015 No long er eligible based on patient's age to complete this topic Hepatitis C Screening Completed 02/15/2023 RSV Ped < 20 months Aged Out No longe r eligible based on patient's age to complete this topic Insurance Payer Benefit Plan / Group Subscriber ID Effective Dates Phone Address [facility] [id number] 2022-Gabriel olson [address] [facility] [address] [place] [address] HMO Care Teams Public Relations Associate Relationship Specialty Start Date End Date Sara Conroy MD [address] [facility] [address] [place] [address] PCP - General Internal Medicine 09/25/22
[2024-11-13 10:05] LABS: MANUAL DIFF FLAG NO
[2024-11-13 10:09] LABS: Hematocrit 33.2 % (37.0-47.0); Hemoglobin 10.5 g/dl (12.0-16.0); Imm Gran Abs Auto 0.04 X10*3/uL (0.00-0.03); Imm Gran Pct Auto 0.6 % (0.0-0.4); Lymphocytes Absolute Auto 1.3 X10*3/uL (1.2-4.9); Mean Corpuscular HGB Conc 31.6 g/dl (31.0-35.0); Mean Corpuscular Hemoglobin 25.4 pg (27.0-33.0); Mean Corpuscular Volume 80.4 fL (80.0-98.0); NRBC Abs Auto 0.000 X10*3/uL (0.0-0.012); NRBC Pct Auto 0.0 /100WBC (0.0-0.2); Platelet Count 446 X10*3/uL (160-400); Red Blood Count 4.13 X10*6/uL (4.20-5.50); White Blood Count 7.2 X10*3/uL (4.8-10.8)
[2024-11-13 10:32] LABS: Iron 21 mcg/dL (30-160); Percent Iron Saturation 9 % (15-50); Total Iron Binding Capacity 246 mcg/dL (228-428); Unsaturated Iron Binding 225 ug/dL
[2024-11-13 10:47] LABS: Ferritin 16 ng/mL (10-250)
== END 2024-11-13 09:06 | disposition home or self-care (01) ==
LOC: HO.HMGCLDS 09:05
PROVIDERS: PCP Internal Medicine; Visit Provider Internal Medicine
DX: K91.850 Pouchitis (principal); D50.9 Iron deficiency anemia, unspecified
CPT/HCPCS: 36415; 80299; 82542; 82728; 83540; 85025

== ENCOUNTER 2024-12-25 09:38 | Outpatient (REF) | payer OTHER, SELFPAY ==
--- OUTSIDE RECORDS SUMMARY | 2024-12-23 06:27 | XMS_ITS ---
Author Organization [facility] Address [address] [facility] [address] [place] [address] Care Team Providers Care Dry Kiln Loader Name Role Phone Sara Conroy Primary Care Provider Gumaro Blandon [phone] REASON FOR VISIT bloody stools Problems Problem Type SNOMED Code ICD Code Onset Dates Problem Status W/U Status Risk Notes Problem Hemorrhage of rectum and anus (864995299) Rectal bleed (K62.5) Active confirmed Encounters Encounter Location Date Provider Diagnosis [facility] [address] [facility] [address] [place] [phone] 12/23/2024 Gumaro Kruse Pouchitis K91.850 and Rectal bleed K62.5 Assessments Encounter Date Diagnosis (ICD Code) Assessment Notes Treatment Notes Treatment Clinical Notes Section Notes 12/23/2024 Pouchitis (ICD-10 - K91.850) 12/23/2024 Rectal bleed (ICD-10 - K62.5) Plan Of Treatment Pending Test Test Name Order Date CBC w DIFF 12/23/2024 C DIFFICILE RFLX PCR 12/23/2024 Calprotectin, Fecal 12/23/2024 GI PANEL 12/23/2024 Next Appt Details Provider Name:Gumaro Kruse , 03/31/2025 09:30:00 AM, [address] [facility], [address], [place], [address], Progress Notes * BLACKJUSTIN BASHIRNE LDOB: 6 (59 yo F)Acc No.[id number]:12/23/2024 Patient: CALE CORLEY :1965 A ge:59 Y S ex:Female Address:[address] [place] [id number] Subjective: * Chief Complaints: * B loody stools * Medical History: * Surgical History: * Hospitalization/Major Diagno stic Procedure: * Medications: Objective: * Vitals: * Physical Examination: Assessment: * Assessment: 1. P ouchitis - K91.850 (Primary) 2 . R ectal bleed - K62.5 ? Plan: * Treatment: 2. R ectal bleed L AB: CBC w DIFF L AB: C DIFFICILE RFLX PCR L AB: Calprotectin, Fecal L AB: GI PANEL * Procedure Codes: * * Date:
--- OUTSIDE RECORDS SUMMARY | 2024-12-25 11:15 | XMS_ITS | Clinical Summary ---
Author Organization [facility] Address [address] [place] [phone] Phone Care Team Providers Care Ethylbenzene Converter Helper Name Role Phone Sara Conroy MD Primary Care Provider Allergies Active Allergy Reactions Criticality Noted Date Comments Hydrocodone-Acetaminophen Nausea and/or Vomiting 07/09/2017 Medications citalopram (CELEXA) 20 MG tablet Take 20 mg by mouth daily. Active calcium carbonate-vitami n D3 (CALCIUM 600 + D,3,) 1,500 mg (600 mg elemental)-200 units Tab Active ascorbic acid, vitamin C, (ASCORBIC ACID WITH SACHIN HIPS) 500 MG tablet Active MULTIVITAMIN ORAL Active LACTOBACILLUS ACIDOPHILUS (PROBIOTIC ORAL) Act francisco levothyroxine (SYNTHROID, LEVOTHROID) 75 MCG tablet Take 1 tablet by mouth daily. 09/21/2022 Active omeprazole (PRILOSEC) 20 MG capsule Take 1 capsule by mouth daily. 10/17/2022 Active ferrous sulfate 325 mg (65 mg [place] iron) tablet Take 325 mg by mouth. 09/13/2022 Active HUMIRA,CF, PEN 40 mg/0.4 mL pen kit citrate freeIndications: Enteropathic arthritis Inject 0.4 mL (40 mg total) under the skin every 14 (fourteen) days. 0.8 mL 6 02/15/2023 Active cycloSPORINE (RESTASIS) 0.05 % suspension Place 1 drop into each eye 2 (two) times a day. 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 She gets regular eye exams. Osteopenia of multiple sites 02/18/2023 Assessment & Plan (02/18/2023 7:31 PM EST): Her recent bone density scan from December 2022 showed osteopenia. Encouraged her to get daily calcium and vitamin D through foods and supplements as well as daily weight bearing exercises. She has good balance and has not had any recent falls. 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 I spoke with Dr. Kruse her national account manager who has agreed to take over prescribing her Humira. She is currently doing very well from a rheumatologic perspective and does not need to see me more than every 6 months. 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 She was previously treated with Enbrel for 2 years and then on Simponi for about 8 years both of which stopped working. She is currently doing well on Humira. Continue with Humira. She knows she needs to stop the Humira if she develops an infection. Both her joints and her bowels are currently stable. We will get some baseline labs including hep C, B and QuantiFERON gold. Primary osteoarthritis involving multiple joints 02/15/2023 Assessment & Plan (09/01/2023 6:53 PM EDT): Osteoarthritis in multiple joints with no current swelling. She can continue with Tylenol 650 mg as needed. Assessment & Plan (02/18/2023 7:30 PM EST): Degenerative osteoarthritis in multiple joints occasionally bothersome in the lower back hips and knees with prolonged activity. She can safely take Tylenol 650 mg as needed. Family History Medical History Relation Comments Cancer Father Asthma Sibling 1 Hypertension Sibling 1 Hypothyroidism Sibling 2 Depression Sibling 3 Asthma Son Relation Status Comments Father Mother Alive Sibling 1 Alive Sibling 2 Alive Sibling 3 Alive Son Alive Social History Tobacco Use Types Packs/Day Years Used Date Smoking Tobacco: Former Cigarettes Smokeless Tobacco: Never Tobacco Cessation:Counseling Given: Not Answered Alcohol Use Standard Drinks/Week Comments Not Currently 0 (1 standard drink = 0.6 oz pur e alcohol) Education Answer Date Recorded Are you interested in more education? Not on guanaco e 10/16/2022 Are you concerned about learning? Not on file 10/16/2022 No 10/16/2022 No 10/16/2022 Digital Access Answer Date Recorded No 10/16/2022 No 10/16/2022 Reliable internet access at home? Not on file 10/16/2022 Device with a working camera? Not on file Comments Unknown Sex and Gender Information Value Date Recorded Sex Assigned at Female 07/09/2017 3:12 PM EDT Legal Sex Female 9:40 PM EDT Gender Identity Female 07/09/2017 3:12 PM EDT Sexual Orientation Not on file Last Filed Vital Signs Vital Sign Reading Time Taken Comments Blood Pressure 128/80 08/16/2023 10:52 AM EDT Pulse 74 08/16/2023 10:52 AM EDT Temperature 36.8 C (98.2 F) 07/09/2017 3:31 PM EDT Respiratory Rate 16 07/09/2017 4:44 PM EDT Oxygen Saturation 98% 02/15/2023 8:03 AM EST Inhaled Oxygen Concentration - - Weight 75.7 kg (166 lb 12.8 oz) 024 10:52 AM EDT Height 165.1 cm (5' 5 ) 08/16/2023 10:5 2 AM EDT Body Mass Index 27.76 08/16/2023 10:52 AM EDT Plan of Treatment Health Maintenance Due Date Last Done Comments LIPID PANEL 1965 TSH LEVEL 1965 DEPRESSION SCREENING 1977 SMOKING Hx and SMOKELESS TOBACCO SCREENING 1978 HIV ONE-TIME SCREENING (18-65 YEARS) 1983 ZOSTER VACCINES (1 of 2) 1984 PAP SMEAR 1986 MAMMOGRAM 2005 COLOGUARD 2010 COLONOSCOPY 2010 COLORECTAL CANCER SCREENING 2010 FIT TEST 2010 FOBT 2010 SIGMOIDOSCOPY 2010 VIRTUAL COLONOSCOPY 2010 PNEUMOCOCCAL VACCINES (50+ years) (2 of 2 - PPSV23) 02/01/2016 12/07/2015 INFLUENZA VACCINE (#1) 2024 , 12/24/2020, 11/20/2018, Additional history exists COVID-19 VACCINE ( season) 2024 12/21/2021, 12/21/2021, 02/07/2021, Additional history exists SCREENING FOR DIABETES 02/15/2026 02/15/2023 Adult Td,Tdap Booster 05/24/2027 05/24/2017 HEPATITIS C SCREENING Completed 02/15/2023 HEPATITIS A VACCINES Aged Out No long er eligible based on patient's age to complete this topic HIB VACCINES Aged Out No longer eligi ble based on patient's age to complete this topic MENINGOCOCCAL VACCINES (ACWY) Aged Out No longer eligible based on patient's age to complete this topic MENINGOCOCCAL VACCINES (B) Aged Out N o longer eligible based on patient's age to complete this topic Medical Devices Not on file Procedures Procedure Name Priority Date/Time Associated Diagnosis Comments HEPATITIS C ANTIBODY, QUALITATIVE Routine 02/15/2023 8:59 AM EST Enteropathic arthritis from Last 3 Months or Most Recently Relevant to Health Maintenance Results * Hepatitis C antibody, qualitative (02/15/2023 8:59 AM EST) HCV NON-REACTIV E NON-REACTI VE [facility] Blood 02/15/2023 8:59 AM EST 02/15/2023 9:01 AM EST us Senthil Marshall MD LAB BLOOD ORDERABLES Fi nal Result [facility] [address] [place] [address] from Last 3 Months or Most Recently Relevant to Health Maintenance Insurance [facility] Care Teams Ethylbenzene Converter Helper Relationship Specialty Start Date End Date Sara Conroy MD [address] [place] [address] [phone] PCP - General Internal Medicine 09/01/23 Additional Source Comments The information contained in this document represents components of the legal health record. It is not the complete legal health record.[facility]
--- OUTSIDE RECORDS SUMMARY | 2024-12-25 11:16 | XMS_ITS | Clinical Summary ---
Author Organization [facility] Address [address] [place] [address] Care Team Providers Care Supervisor Assembling Name Role Phone Sara Conroy MD Primary Care Provider [phone] Allergies Active Allergy Reactions Criticality Noted Date [...] of 2) 2015 COVID-19 Vaccine ( season) 2024 02/07/2021, 07/14/2020, 06/22/2020 Influenza Vaccine (#1) 2024 [...] Group Subscriber ID Effective Dates Phone Address [facility] [id number] 2022-Gabriel olson [address] [facility] [address] [place] [address] HMO Care Teams Supervisor Assembling Relationship Specialty Start Date End Date Sara Conroy MD [address] [facility] [address] [place] [address] PCP - General Internal Medicine 09/25/22
--- OUTSIDE RECORDS SUMMARY | 2024-12-25 11:16 | XMS_ITS | Patient Health Record ---
Author Organization [facility] Address [address] [place] [address] Care Team Providers Care Real Estate Marketing Coordinator Name Role Phone Sara Conroy Primary Care Provider Gumaro Blandon [phone] Allergies Allergen (clinical drug ingredient) Drug/Non Drug Allergy documented on EMR Reaction Allergy Type Onset Date Status Vicodin vomiting Drug Allergy Active Results Component Value Reference Range Notes Ferritin Reviewed date:04/06/2024 12:11:33 PM Interpretation: Performing Lab:[facility], [address] [place] [phone] Notes/Report: Ferritin 20 10-250 ng/mL Vitamin B12 and Folate Reviewed date:04/06/2024 12:11:42 PM Interpretation: Performing Lab:[facility], [address] [place] [phone] Notes/Report: Vitamin B12 524 200-900 pg/mL NORMAL 200-900 PG/ML INDETERMINATE 160-199 PG/ML DEFICIENT < 160 PG/ML Folate 16.3 > or = 4.0 ng/mL Reference Values: > or = 4.0 ng/mL < 4.0 ng/mL suggests folate deficiency Methotrexate, aminopterin and folinic acid (leucovorin) are chemotherapeutic agents whose molecular structures are similar to folate; therefore, the [employer]erry [employer] folate assay cannot be used for patients using these drugs. Shaq BETANCUR Reviewed date:04/16/2024 11:47:27 PM Interpretation: Performing Lab:[facility], [address] [place] [phone] Notes/Report: Shaq BETANCUR SEE NOTE SEE SCA NNED RESULTS IN EMR Complete Blood Count Auto Di ff Reviewed date:04/16/2024 11:48:20 PM Interpretation: Performing Lab:[facility], [address] [place] [phone] Notes/Report: White Blood Count 6.7 4.8-10.8 X10*3/uL [...] te Reviewed date:04/06/2024 12:11:50 PM Interpretation: Performing Lab:[facility], [address] [place] [phone] Notes/Report: Erythrocyte Sedimentation Rate 20 0-20 MM/HR Patients with polycythemia and many hemoglobin abnormalities may have depressed sed rates whereas patients with anemia may have elevated sed rates. Liver Panel Reviewed date:04/06/2024 12:13:14 PM Interpretation: Performing Lab:[address] [phone] Notes/Report: Bilirubin Total 0.4 0.0-1.0 mg/dL Bilirubin Direct 0.1 0.0-0.5 mg/dL Aspartate Amino Transferase 41 5-31 U/L Alanine Aminotransferase 36 0-31 U/L Total Protein 7.8 6.5-8.0 g/dL Albumin Level 3.8 3.5-5.0 g/dL Alkaline Phosphatase 108 39-117 U/L Basic Metabolic Panel Reviewed date:04/06/2024 12:12:45 PM Interpretation: Performing Lab:[address] [phone] Notes/Report: Sodium 138 135-145 mmol/L Potassium 3.9 [...] PROFILE Reviewed date:04/06/2024 12:12:10 PM Interpretation: Performing Lab:[facility], [address] [place] [phone] Notes/Report: Iron 25 30-160 mcg/dL Total Iron Binding Capacity 316 228-428 mcg/d L Percent Iron Saturation 8 15-50 % Unsaturated Iron Binding 291 C Reactive Protein Reviewed date:04/06/2024 12:11:59 PM Interpretation: Performing Lab:[address] [phone] Notes/Report: C Reactive Protein 1.26 < or = 0.50 mg/dL Complete Blood Count Auto Di ff Reviewed date:12/23/2024 08:49:48 PM Interpretation: Performing Lab:[facility], [address] [place] [phone] Notes/Report: White Blood Count 7.2 4.8-10.8 X10*3/uL Red Blood Count 4.13 4.20-5.50 X10*6/uL Hemoglobin 10.5 12.0-16.0 g/dl Hematocrit 33.2 37.0-47.0 % Mean Corpuscular Volume 80.4 80.0-98.0 fL Mean Corpuscular Hemoglobin 25.4 27.0-33.0 pg Mean Corpuscular HGB Conc 31.6 31.0-35.0 g/dl Red Cell Distribution Width 15.0 11.0-16.0 % Platelet Count 446 160-400 X10*3/uL Mean Platelet Volume 10.8 9.4-12.3 fL Neutrophils Percent Auto 64.3 45-73 % Imm Gran Pct Auto 0.6 0.0-0.4 % Lymphocytes Percent Auto 18.3 20-40 % Monocytes Percent Auto 10.1 2-11 % Eosinophils Percent Auto 5.6 0-4 % Basophils Percent Auto 1.1 0-2 % NRBC Pct Auto 0.0 0.0-0.2 /100WBC Neutrophils Absolute Auto 4.6 2.0-8.3 x10*3/u L Imm Gran Abs Auto 0.04 0.00-0.03 X10*3/uL Lymphocytes Absolute Auto 1.3 1.2-4.9 X10*3/u L Monocytes Absolute Auto 0.7 0.1-1.2 X10*3/uL Eosinophils Absolute Auto 0.4 0.0-0.4 X10*3/u L Basophils Absolute Auto 0.1 0.0-0.2 X10*3/uL NRBC Abs Auto 0.000 0.0-0.012 X10*3/uL IRON PROFILE Reviewed date:12/23/2024 08:50:08 PM Interpretation: Performing Lab:[facility], [address] [place] [phone] Notes/Report: Iron 21 30-160 mcg/dL Total Iron Binding Capacity 246 228-428 mcg/d L Percent Iron Saturation 9 15-50 % Unsaturated Iron Binding 225 Ferritin Reviewed date:12/23/2024 08:49:59 PM Interpretation: Performing Lab:[facility], [address] [place] [address] Notes/Report: Ferritin 16 10-250 ng/mL Shaq HITCHCOCK (Not ye t reviewed by provider) Interpretation: Performing Lab:[facility], [address] [place] [address] Notes/Report: Shaq HITCHCOCK SEE NOTE SEE SCA NNED IN EMR Reason For Referral No Information Medications Medication SIG (Take, Route, Frequency, Duration) Notes Start Date End Date Status Stelara 90 MG/ML 1 Subcutaneous Every 4 weeks for 28 days 12/24/2024 Active Calcium + D + K 750-500-40 MG-UNT-MCG [...] W/U Status Risk Notes Problem Esophageal reflux (995445000) Esophageal reflux (K21.9) Active confirmed Problem Rectal bleeding (04823429) Rectal bleeding (K62.5) Active confirmed Problem 13111453 Ileitis (K52.9) Active confirmed Problem Pseudopolyposis of colon (85062670) Inflammatory polyps of colon without complications (K51.40) Active confirmed Problem 083402628 Pouchitis (K91.850) Active confirmed Problem Iron deficiency anemia (84932542) Iron deficiency anemia (D50.9) Active confirmed Problem 642466625 Elevated liver function tests (R79.89) Active confirmed Problem 065648201 Fatty liver (K76.0) Active confirmed Problem Gastric polyp (45391795) Gastric polyp (K31.7) Active confirmed Problem Hemorrhage of rectum and anus (873082726) Rectal bleed (K62.5) Active confirmed Problem 69869989 Other iron deficiency anemia (D50.8) Active confirmed Problem 44762005 Iron deficiency anemia, unspecified iron deficiency anemia type (D50.9) Active confirmed Problem 10250849 Diarrhea, unspecified type (R19.7) Active confirmed Problem Erosive gastritis (9718826216188398) Erosive gastritis (K29.60) Active confirmed Problem Crohn's disease of small intestine (60324741) Crohn''s disease of small intestine with other complication (K50.018) Active confirmed Problem 878052644 Gastroesophageal reflux disease, unspecified whether esophagitis present (K21.9) Active confirmed Vital Signs Temperature 97.3 degrees Fahrenheit 09/26/2024 Blood pressure diastolic 01 mm Hg 09/26/2024 Height 65 in 09/26/2024 Blood pressure systolic 001 mm Hg 09/26/2024 Weight 167.6 lbs 09/26/2024 BMI 27.89 kg/m2 09/26/2024 Encounters Encounter Location Date Provider Diagnosis [facility] [address] [place] [phone] 04/01/2024 Gumaro Kruse Pouchitis K91.850 ; Diarrhea, unspecified type R19.7 ; Iron deficiency anemia, unspecified iron deficiency anemia type D50.9 ; Elevated liver function tests R79.89 ; Erosive gastritis K29.60 ; Ileitis K52.9 ; Crohn''s disease of small intestine with other complication K50.018 and Gastroesophageal reflux disease, unspecified whether esophagitis present K21.9 [facility] [address] [place] [phone] 09/26/2024 Gumaro Kruse Pouchitis K91.850 ; Iron deficiency anemia, unspecified iron deficiency anemia type D50.9 and Gastroesophageal reflux disease, unspecified whether esophagitis present K21.9 [facility] [address] [place] [phone] 12/23/2024 Gumaro Kruse Pouchitis K91.850 an d Rectal bleed K62.5 [facility] [address] [place] [phone] 12/23/2024 Gumaro Kruse [facility] [address] [place] [phone] 03/27/2024 Gumaro Kruse [facility] [address] [place] [phone] 03/28/2024 Gumaro Kruse [facility] [address] [place] [phone] 04/13/2024 Gumaro Kruse [facility] [address] [place] [phone] 07/08/2024 Gumaro Kruse Pouchitis K91.850 an d Rectal bleeding K62.5 [facility] [address] [place] [phone] 08/06/2024 Gumaro Kruse [facility] [address] [place] [phone] 10/10/2024 Gumaro Kruse Assessments Encounter Date Diagnosis [...] to keep you advised of her progress. 12/23/2024 Pouchitis (ICD-10 - K91.850) 12/23/2024 Rectal bleed (ICD-10 - K62.5) 07/08/2024 Rectal bleeding (ICD-10 - K62.5) 07/08/2024 [...] IBC (FE) 10/30/2022 IRON + IBC (FE) 07/08/2024 IRON + IBC (FE) 09/26/2024 IRON + IBC (FE) 04/01/2024 CRP 07/08/2024 CRP 04/01/2024 CBC w DIFF 04/01/2024 CBC w DIFF 11/10/2013 CBC w DIFF 10/30/2022 CBC w DIFF 12/23/2024 CBC w DIFF 09/26/2024 CBC w DIFF 07/08/2024 SED RATE (ESR) 07/08/2024 SED RATE (ESR) 04/01/2024 HEPATITIS B, C PROFILE 09/19/2022 HEPATITIS B PROFILE 08/21/2023 CLOSTRIDIUM DIFF TOXIN A&B (C DIFF) 05/2017 CELIAC PANEL #10 09/19/2022 FLUOR. ANTINUCLEAR AB SCREEN (FARIDEH) 09/01 STOOL WBC 07/03/2017 C DIFFICILE RFLX PCR 12/23/2024 Ferritin 07/08/2024 Ferritin 10/30/2022 Ferritin 09/26/2024 Prometheus Anser UST 09/26/2024 Prometheus Anser UST 11/13/2024 Prometheus ANSER ADA 08/21/2023 T Spot TB 08/21/2023 Calprotectin, Fecal 12/23/2024 GI PANEL 12/23/2024 Future Test Test Name Order Date FLEXIBLE SIGMOIDOSCOPY, DIAGNOSTIC 09/19 UPPER GI ENDOSCOPY 09/19/2022 Next Appt Details Provider Name:Gumaro Kruse , 03/31/2025 09:30:00 AM, [address] [facility], [address], [place], [address], Insurance Providers Payer Name Payer Address Payer Phone Subscriber Number Group Number Insured Name Patient Relationship to Insured Coverage Start Date Coverage End Date [facility] [address] [place] [address] [phone] [id number] CALE BLACK Self - patient is the [...] including a MRI of the pelvis Denies MT,DM,CVA,Lung disease,renal dise ase Sees Dr. Marshall for enterop athic(Rheumatoid) arthritis- on Symponi > 5 years- switched to Humira for insurance purposes. I took over the prescribing of Humira as a change in her insurance would not let her leadership development manager prescribed Humira for his diagnosis of her [...] infusion in October of 2022 with the paster supervisor, Dr. Gillespie, at [facility] Upper endoscopy in September revealed a small [...] Bunion surgery L4/L5 fusion One-stage proctocolectomy wi th ileoanal anastomosis--she had to have a temporary ileostomy after she had to undergo an exploratory laparotomy for intra-abdominal abcesses shortly after the original surgery 1996
--- OUTSIDE RECORDS SUMMARY | 2024-12-25 11:16 | XMS_ITS | Clinical Summary ---
Author Organization [facility] Address [address] [place] [address] Phone Care Team Providers Care Boiler Tube Reamer Name Role Phone Sara Conroy MD Primary Care Provider [phone] Allergies Active Allergy Reactions Criticality Noted Date Comments Hydrocodone-Acetaminophen Other 10/24/2022 Nausea and vomiting Medications calcium carbonate (CALCIUM ORAL) Take by mouth. Take by mouth Active ferrous sulfate 325 mg (65 mg elemental iron) tablet Take 1 tablet (325 mg total) by mouth every morning with breakfast. Active multivitamin (MULTIPLE VITAMINS ORAL) Take by mouth. Take by mouth Active omeprazole (PriLOSEC) [address] capsule Take 1 capsule (20 mg total) by mouth 1 (one) time each day. Active Lactobacillus acidophilus (PROBIOTIC ORAL) Take by mouth. 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 Vitamin D deficiency 05/29/2024 Adult general medical examination 05/29/2024 Other fatigue 05/29/2024 Crohn's disease of small and large intestines with complication ([facility] V24, [facility] V28) 05/29/2024 Hypothyroidism (acquired) 05/29/2024 Iron deficiency anemia due to chronic blood loss 10/25/2022 Encounters Date Type Department Care Team Description 11/27/2024 9:15 AM EDT Office Visit [facility] Hematology Oncology [address] [place] [phone] Horace Gillespie MD Iron deficiency anemia due to chronic blood loss (Primary Dx) 11/24/2024 Telephone Internal Medicine [facility] [address] [place] [address] Rehan Unger MA 10/24/2024 11:45 AM EDT Office Visit Internal Medicine [facility] [address] [place] [address] Altaf Andrews MD Nail dystrophy (Primary Dx) 10/13/[address] [phone] Chrissy Canada PA from Last 3 Months Surgical History Surgery Date Site/Laterality Comments BREAST BIOPSY 04/13/2015 Left PROCEDURE: BX BREAST; PERC NEEDLE CORE W/IMAG GUID; COMMENT: Negative OTHER SURGICAL HISTORY 1995 PROCEDURE: NE COLECTOMY TOT ABD W/PROCTECTOMY ILEOANAL ANAST; COMMENT: Total colectomy, J pouch, Ayana Dion BACK SURGERY 2006 PROCEDURE: HISTORICAL BACK SURGERY; COMMENT: Lumbar fusion w/ rods OTHER SURGICAL HISTORY 1995 PROCEDURE: HISTORY OTHER; COMMENT: Temporary ileostomy, removal of adhesions (7) OTHER SURGICAL HISTORY PROCEDURE: NE CLSR ENTEROENTERIC/ENTEROCOLIC FSTL; COMMENT: related to UC APPENDECTOMY PROCEDURE: HISTORICAL APPENDECTOMY; COMMENT: with colectomy Medical History Medical History Date Comments Anxiety and depression 05/03/2018 DX:Anxiet y and depression Ulcerative colitis (CMS/HCC V24, [facility] V28) 05/03/2018 DX:Ulcerative colitis (HCC); COMMENT: Follows with Dr Kruse Abnormal mammogram of left breast 05/03/2018 DX:Abnormal mammogram of left breast; COMMENT: H/o biopsy that was benign. 04/2015 Hypercholesteremia 05/03/2018 DX:Hyperchole steremia Enteropathic arthritis 05/15/2018 DX:Entero pathic arthritis Osteopenia 05/15/2018 DX:Osteopenia Family History Medical History Relation Name Comments Lung cancer Father age 47 Kidney cancer Sister 1 No Known Problems Sister 2 No Known Problems Sister 3 No Known Problems Sister 4 No Known Problems Son Relation Name Status Comments Father Mother Alive Sister 1 Alive Sister 2 Alive Sister 3 Alive Sister 4 Alive Son Alive Social History Tobacco Use Types Packs/Day Years Used Date Smoking Tobacco: Former Smokeless Tobacco: Never Tobacco Cessation:Counseling Given: Not Answered Alcohol Use Standard Drinks/Week Comments Yes 0 [...] Record ed Within the last 3 months, ho milena many times did you visit the emergency [...] care for your loved ones. For example, director child or elderly care for an older adult? [...] Orientation Straight 06/03/2024 1: 12 PM EST Obstetrics History Last Filed Vital Signs Vital Sign Reading Time Taken Comments Blood Pressure 126/74 11/27/2024 9:26 AM EDT Pulse 75 11/27/2024 9:26 AM EDT Temperature 36.9 C (98.4 F) 11/27/2024 9:26 AM EDT Respiratory Rate 15 09/05/2024 12:56 PM EDT Oxygen Saturation 94% 11/27/2024 9:26 AM EDT Inhaled Oxygen Concentration - - Weight 73.9 kg (163 lb) 10/24/2024 11:49 AM EDT Height 165.1 cm (5' 5 ) 10/24/2024 11:49 AM EDT Body Mass Index 27.12 10/24/2024 11:49 AM EDT Plan of Treatment Upcoming Encounters Date Type Department Care Team (Late st Contact Info) Description 03/02/2025 9:15 AM EST Office Visit [facility] Hematology Oncology [address] [place] [address] Horace Gillespie MD [address] [place] [phone] 09/07/2025 9:00 AM EDT Office Visit Internal Medicine [facility] [address] [place] [phone] Sara Conroy MD [address] [facility] [address] [place] [address] 09/08/2025 9:30 AM EDT Office Visit Endocrinology [facility] [address] [place] [address] Chrissy Canada PA [address] [place] [address] Health Maintenance Due Date Last Done Comments Breast Cancer Screening 1965 Hepatitis A Vaccines (1 of 2 - Risk 2-dose series) 1984 Hepatitis B Vaccines (1 of 3 - 19+ 3-dose series) 1984 Cervical Cancer Screening: Pap Smear 1986 Zoster Vaccines (1 of 2) 2015 Pneumococcal Vaccine: 50+ Years (3 of 3 - PCV20 or PCV21) 12/07/2020 12/08/2015, 12/07/2015 Colorectal Cancer Screening: Colonoscopy 03/11/2022 HIV Screening 03/11/2022 COVID-19 Vaccine ( season) 2024 12/21/2021, 02/07/2021, 08/21/2020, Additional history exists Social Influencers of Health Screening 05/22/2025 05/22/2024 DTaP,Tdap,and Td Vaccines (2 - Td or Tdap) 05/24/2027 05/24/2017 Cholesterol Screening (Lipid Panel) 05/30/2029 05/30/2024 Osteoporosis Screening (Bone Density Screening) 12/20/2032 12/20/2022, 05/27/2019 RSV Immunization Adult Patients (1 - 1-dose 75+ series) 2040 Hepatitis C Screening Completed 02/15/2023, 023 Depression Screening Completed 05/22/2024 Influenza Vaccine Completed 11/13/2024, , 12/10/2023, Additional history exists HIB Vaccines Aged Out No longer eligi ble based on patient's age to complete this topic HPV Vaccines Aged Out No longer eligi ble based on patient's age to complete this topic IPV Vaccines Aged Out No longer eligi ble based on patient's age to complete this topic MMR Vaccines Aged Out No longer eligi ble based on patient's age to complete this topic Meningococcal ACWY Vaccine Aged Out N o longer eligible based on patient's age to complete this topic Meningococcal B Vaccine Aged Out No l onger eligible based on patient's age to complete this topic RSV Immunization Patients Under 20 months Aged Out No longer eligible based on patient's age to complete this topic Varicella Vaccines Aged Out No longer eligible based on patient's age to complete this topic Procedures Procedure Name Priority Date/Time Associated Diagnosis Comments CBC WITH AUTO DIFFERENTIAL Routine 11/24/2024 1:15 PM EDT Iron deficiency anemia due to chronic blood loss CBC AND DIFFERENTIAL Routine 11/24/2024 1:15 PM EDT Iron deficiency anemia due to chronic blood loss FERRITIN Routine 11/24/2024 1:15 PM EDT Iron deficiency anemia due to chronic blood loss IRON AND TIBC Routine 11/24/2024 1:15 PM EDT Iron deficiency anemia due to chronic blood loss THYROID STIMULATING HORMONE WITH REFLEX TO FREE T4 AND FREE T3 Routine 11/24/2024 1:15 PM EDT Hypothyroidism (acquired) CULTURE FUNGUS, OTHER THAN SKIN HAIR OR NAILS Routine 10/24/2024 12:25 PM EDT Nail dystrophy LIPID PANEL WITH REFLEX TO DIRECT LDL Routine 05/30/2024 9:44 AM EST Screening for cholesterol level HM HEPATITIS C SCREENING Routine 02/15/2023 DXA BONE DENSITY STUDY 1+ SITS AXIAL SKEL Routine 12/20/2022 9:23 AM EDT Other specified disorders of bone density and structure, unspecified site from Last 3 Months or Most Recently Relevant to Health Maintenance Results * Thyroid stimulating hormone with reflex to free t4 and free t3 (11/24/2024 1:15 PM EDT) [facility] TSH 1.93 0.40 - 4.00 mcIU/mL LAB CHEMISTRY METHOD 11/24/2024 5:53 PM EDT [facility] Blood Venous blood specimen / Unknown Venipuncture / Unknown 11/24/2024 1:15 PM EDT 11/24/2024 1:15 PM EDT us Chrissy LIMA LAB BLOOD ORDERABLES Final Result [facility] [address] [place] [address], [place] [phone] * (ABNORMAL) CBC auto differential (11/24/2024 1:15 PM EDT) [facility] WBC 7.5 4.8 - 10.8 K/mcL LAB HEMETOLOGY METHOD 11/24/2024 4:34 PM EDT [facility] RBC 4.20 3.80 - 4.80 M/mcL LAB HEMETOLOGY METHOD 11/24/2024 4:34 PM EDT [facility] Hemoglobin 10.6(L) 11.5 - 16.0 g/dL LAB HEMETOLOGY METHOD 11/24/2024 4:34 PM EDT [facility] Hematocrit 34.4(L) 35.0 - 47.0 % LAB HEMETOLOGY METHOD 11/24/2024 4:34 PM EDT [facility] MCV 81.9 79.0 - 98.0 FL LAB HEMETOLOGY METHOD 11/24/2024 4:34 PM EDT [facility] MCH 25.2(L) 27.0 - 32.0 pcg LAB HEMETOLOGY METHOD 11/24/2024 4:34 PM EDT [facility] MCHC 30.8(L) 32.0 - 37.0 g/dL LAB HEMETOLOGY METHOD 11/24/2024 4:34 PM [facility] RDW 15.7(H) 11.0 - 15.0 % LAB HEMETOLOGY METHOD 11/24/2024 4:34 PM [facility] Platelets 419(H) 130 - 400 K/mcL LAB HEMETOLOGY METHOD 11/24/2024 4:34 PM [facility] MPV 11.4(H) 7.0 - 11.0 FL LAB HEMETOLOGY METHOD 11/24/2024 4:34 PM [facility] NRBC 0.0 <1.0 % LAB HEMETOLOGY METHOD 11/24/2024 4:34 PM [facility] NRBC Absolute 0.00 <0.10 K/mcL LAB HEMETOLOGY METHOD 11/24/2024 4:34 PM [facility] Neutrophils Relative 47.8 % LAB HEMETOLOGY METHOD 11/24/2024 4:34 PM [facility] Lymphocytes Relative 29.7 % LAB HEMETOLOGY METHOD 11/24/2024 4:34 PM [facility] Monocytes Relative 13.5 % LAB HEMETOLOGY METHOD 11/24/2024 4:34 PM [facility] Eosinophils Relative 7.1 % LAB HEMETOLOGY METHOD 11/24/2024 4:34 PM [facility] Basophils Relative 1.6 % LAB HEMETOLOGY METHOD 11/24/2024 4:34 PM [facility] Immature Granulocytes Relative 0.3 % LAB HEMETOLOGY METHOD 11/24/2024 4:34 PM [facility] Neutrophils Absolute 3.58 1.50 - 7.00 K/mcL LAB HEMETOLOGY METHOD 11/24/2024 4:34 PM [facility] Lymphocytes Absolute 2.22 1.00 - 5.00 K/mcL LAB HEMETOLOGY METHOD 11/24/2024 4:34 PM EDT [facility] Monocytes Absolute 1.01(H) 0.20 - 1.00 K/[facility] LAB HEMETOLOGY METHOD 11/24/2024 4:34 PM EDT [facility] Eosinophils Absolute 0.53(H) 0.00 - 0.50 K/mcL LAB HEMETOLOGY METHOD 11/24/2024 4:34 PM EDT [facility] Basophils Absolute 0.12 0.00 - 0.20 K/[facility] LAB HEMETOLOGY METHOD 11/24/2024 4:34 PM EDT [facility] Immature Granulocytes Absolute 0.02 0.00 - 0.03 K/[facility] LAB HEMETOLOGY METHOD 11/24/2024 4:34 PM EDT [facility] Blood Venous blood specimen / Unknown Venipuncture / Unknown 11/24/2024 1:15 PM EDT 11/24/2024 1:15 PM EDT Horace Gillespie MD LAB BLOOD ORDERABLES Final Result [facility] [address] [place] [address], * (ABNORMAL) Iron and TIBC (11/24/2024 1:15 PM EDT) Iron 31(L) 40 - 150 mcg/dL LAB CHEMISTRY METHOD 11/24/2024 4:50 PM EDT [facility] TIBC 321 250 - 450 mcg/dL LAB CHEMISTRY METHOD 11/24/2024 4:50 PM EDT [facility] Iron Saturation 10(L) 15 - 50 % LAB CHEMISTRY METHOD 11/24/2024 4:50 PM EDT [facility] Blood Venous blood specimen / Unknown Venipuncture / Unknown 11/24/2024 1:15 PM EDT 11/24/2024 1:15 PM EDT Horace Gillespie MD LAB BLOOD ORDERABLES Final Result Performing Organization Address [facility] Co de Phone Number [facility] [address] [place] [address], [place] [phone] * Ferritin (11/24/2024 1:15 PM EDT) [facility] Ferritin 15 8 - 252 ng/mL LAB CHEMISTRY METHOD 11/24/2024 4:52 PM EDT [facility] Blood Venous blood specimen / Unknown Venipuncture / Unknown 11/24/2024 1:15 PM EDT 11/24/2024 1:15 PM EDT Horace Gillespie MD LAB BLOOD ORDERABLES Final Result Performing Organization Address [facility] de Phone Number [facility] [address] [place] [address], [place] [phone] * Culture fungus, other than skin hair or nails (10/24/2024 12:25 PM EDT) [facility] Culture, Fungus Negative for Fungus after 4 Weeks 11/24/2024 8:24 AM EDT [facility] Other Structure of digit of right hand / Unknown Non-blood Collection / Unknown 10/24/2024 12:25 PM EDT 10/24/2024 12:25 PM EDT us Sara Conroy MD LAB MICROBIOLOGY - GENERAL ORD ERABLES Final Result Performing Organization Address [facility] Co de Phone Number [facility] [address] [place] [address], [place] [phone] * (ABNORMAL) Lipid panel with reflex to direct LDL (05/30/2024 9:44 AM EST) [facility] Cholesterol 200 0 - 200 mg/dL LAB CHEMISTRY METHOD 05/30/2024 3:52 PM [facility] Triglycerides 84 0 - 150 mg/dL LAB CHEMISTRY METHOD 05/30/2024 3:52 PM [facility] HDL 74 >=40 mg/dL LAB CHEMISTRY METHOD 05/30/2024 3:52 PM [facility] LDL Calculated 109(H) 0 - 100 mg/dL LAB CHEMISTRY METHOD 05/30/2024 3:52 PM [facility] VLDL Cholesterol Stone 16.8 mg/dL LAB CHEMISTRY METHOD 05/30/2024 3:52 PM [facility] Non HDL Chol. (LDL+VLDL) 126 <145 mg/dL LAB CHEMISTRY METHOD 05/30/2024 3:52 PM [facility] Chol/HDL Ratio 2.7 0.0 - 4.4 LAB CHEMISTRY METHOD 05/30/2024 3:52 PM [facility] Blood Venous blood specimen / Unknown Venipuncture / Unknown 05/30/2024 9:44 AM EST 05/30/2024 9:44 AM EST Sara Conroy MD LAB BLOOD ORDERABLES Final Res ult [facility] [address] [place] [address], * Hepatitis C Screening (02/15/2023) Hepatitis C Screening Abstracted Historical Provider HEALTH MAINTENANCE Final Result * DXA BONE DENSITY STUDY 1+ SITS AXIAL SKEL (12/20/2022 9:23 AM EDT) Anatomical Region Laterality Modality Bone Densitometr y 09/21/2022 4:00 PM EDT Narrative 12/20/2022 2:17 PM EDT BONE DENSITY Lumbar Spine T-score is -0.5 (SD relative to 20-29 y/o adult) Z-score is +0.7 (SD relative to age matched peers) This is normal by criteria defined by the WHO. Left Hip T-score is -2.0 Z-score is -0.8 This is consistent with osteopenia by criteria defined by the WHO. Comparison exam(s): no statistically significant change in the bone density of the hip and lumbar spine when compared to most recent bone density examination Confidence level is +/-95%. Impression: Based on the World Health Organization criteria, Aileen Daniels should be classified as having osteopenia. This patient has a 14% risk of major osteoporotic fracture and a 0.8% risk of hip fracture over the next 10 years. (World Health Organization Fracture Risk Assessment) [facility] Department of Internal Medicine recommends using National Osteoporosis Foundation (NOF) guidelines in treatment decisions related to osteoporosis. NOF guidelines suggest considering treatment for postmenopausal women and men aged 50 or older presenting with the following: History of hip or vertebral fracture. T-score less than or equal to -2.5 (DXA) at the femoral neck, total hip, or spine, after appropriate evaluation to exclude secondary causes. Low bone mass (T-score between -1.0 and -2.5 at the femoral neck or spine) AND a 10-year probability of a hip fracture greater than or equal to 3% OR a 10-year probability of a major osteoporosis-related fracture greater than or equal to 20% based on the [place]-adapted WHO algorithm Please note that all treatment decisions require clinical judgment and consideration of individual patient factors, including patient preferences, co-morbidities, previous drug use, risk factors not captured in the FRAX model (e.g., frailty, falls, vitamin D deficiency, increased bone turnover, interval significant decline in bone density) and possible under- or over-estimation of fracture risk by FRAX. Procedure Note Madison Pittman MD - 05/08/2023 BONE DENSITY Lumbar Spine T-score is -0.5 (SD relative to 20-29 y/o adult) Z-score is +0.7 (SD relative to age matched peers) This is normal by criteria defined by the WHO. Left Hip T-score is -2.0 Z-score is -0.8 This is consistent with osteopenia by criteria defined by the WHO. Comparison exam(s): no statistically significant change in the bonedensity of the hip and lumbar spine when compared to most recent bonedensity examination Confidence level is +/-95%. Impression: Based on the World Health Organization criteria, Aileen Daniels should beclassified as having osteopenia. This patient has a 14% risk of majorosteoporotic fracture and a 0.8% risk of hip fracture over the next 10years. (World Health Organization Fracture Risk Assessment) [facility] Department of Internal Medicine recommendsusing National Osteoporosis Foundation (NOF) guidelines in treatmentdecisions related to osteoporosis. NOF guidelines suggest consideringtreatment for postmenopausal women and men aged 50 or older presentingwith the following: History of hip or vertebral fracture. T-score less than or equal to -2.5 (DXA) at the femoral neck, total hip,or spine, after appropriate evaluation to exclude secondary causes. Low bone mass (T-score between -1.0 and -2.5 at the femoral neck or spine)AND a 10-year probability of a hip fracture greater than or equal to 3% ORa 10-year probability of a major osteoporosis-related fracture greaterthan or equal to 20% based on the [place]-adapted WHO algorithm Please note that all treatment decisions require clinical judgment andconsideration of individual patient factors, including patientpreferences, co-morbidities, previous drug use, risk factors not capturedin the FRAX model (e.g., frailty, falls, vitamin D deficiency, increasedbone turnover, interval significant decline in bone density) and possibleunder- or over-estimation of fracture risk by FRAX. Chrissy LIMA IMMiguelina DXA PROCEDURES Final Re sult from Last 3 Months or Most Recently Relevant to Health Maintenance Insurance * Guarantor: Aileen Daniels Account Type Relation to Patient Date of Phone Billing Address Personal/Family Self 1965 [phone] (Work) [address] [place] [address] [facility] [address] [place] [address] Care Teams Boiler Tube Reamer Relationship Specialty Start Date End Date Sara Conroy MD [address] [facility] [address] [place] [phone] PCP - General Internal Medicine 02/14/21
[2024-12-25 13:14] LABS: MANUAL DIFF FLAG NO
[2024-12-25 13:17] LABS: Hematocrit 30.2 % (37.0-47.0); Hemoglobin 9.7 g/dl (12.0-16.0); Imm Gran Abs Auto 0.03 X10*3/uL (0.00-0.03); Imm Gran Pct Auto 0.5 % (0.0-0.4); Lymphocytes Absolute Auto 1.7 X10*3/uL (1.2-4.9); Mean Corpuscular HGB Conc 32.1 g/dl (31.0-35.0); Mean Corpuscular Hemoglobin 26.1 pg (27.0-33.0); Mean Corpuscular Volume 81.2 fL (80.0-98.0); NRBC Abs Auto 0.000 X10*3/uL (0.0-0.012); NRBC Pct Auto 0.0 /100WBC (0.0-0.2); Platelet Count 341 X10*3/uL (160-400); Red Blood Count 3.72 X10*6/uL (4.20-5.50); White Blood Count 6.2 X10*3/uL (4.8-10.8)
[2024-12-25 16:58] LABS: CDiff Gene PCR NEGATIVE (Negative)
[2024-12-26 13:27] LABS: E. coli EAEC Not Detected (Not Detect.); E. coli EPEC Not Detected (Not Detect.); E. coli ETEC Not Detected (Not Detect.); E. coli STEC Not Detected (Not Detect.); Shigella sp./EIEC Not Detected (Not Detect.)
[2024-12-31 20:08] LABS: Calprotectin, Fecal 478 mcg/g
== END 2024-12-25 09:39 | disposition home or self-care (01) ==
LOC: HO.HMGCLDS 09:38
PROVIDERS: PCP Internal Medicine; Visit Provider Internal Medicine
DX: K91.850 Pouchitis (principal); K62.5 Hemorrhage of anus and rectum
CPT/HCPCS: 36415; 83993; 85025; 87493; 87507

== ENCOUNTER 2025-01-07 11:37 | Outpatient (REF) | payer OTHER, SELFPAY ==
[2025-01-07 16:15] LABS: MANUAL DIFF FLAG NO
[2025-01-07 16:17] LABS: Hematocrit 31.3 % (37.0-47.0); Hemoglobin 10.2 g/dl (12.0-16.0); Imm Gran Abs Auto 0.01 X10*3/uL (0.00-0.03); Imm Gran Pct Auto 0.1 % (0.0-0.4); Lymphocytes Absolute Auto 1.9 X10*3/uL (1.2-4.9); Mean Corpuscular HGB Conc 32.6 g/dl (31.0-35.0); Mean Corpuscular Hemoglobin 26.8 pg (27.0-33.0); Mean Corpuscular Volume 82.2 fL (80.0-98.0); NRBC Abs Auto 0.000 X10*3/uL (0.0-0.012); NRBC Pct Auto 0.0 /100WBC (0.0-0.2); Platelet Count 347 X10*3/uL (160-400); Red Blood Count 3.81 X10*6/uL (4.20-5.50); White Blood Count 6.9 X10*3/uL (4.8-10.8)
[2025-01-07 16:48] LABS: Anion Gap 11 (12-20); Blood Urea Nitrogen 10 mg/dL (9-16); Carbon Dioxide 25 mmol/L (22-29); Chloride 108 mmol/L (96-108); Estimated Glomerular Filt Rate > 60; Potassium 3.5 mmol/L (3.3-5.1); Sodium 140 mmol/L (135-145)
== END 2025-01-07 11:38 | disposition home or self-care (01) ==
LOC: HO.HMGCLDS 11:37
PROVIDERS: PCP Internal Medicine; Visit Provider Internal Medicine
DX: K91.850 Pouchitis (principal); K62.5 Hemorrhage of anus and rectum
CPT/HCPCS: 36415; 80051; 82565; 82947; 84520; 85025